=== PATIENT | male | born 1960 | race Caucasian/White ===

== ENCOUNTER → 2017-02-12 | Outpatient (CLI) | payer SELFPAY ==
--- NOTE | 2017-02-13 10:28 | CR ---
EXAM DATE: 02/12/17 PATIENT'S AGE: 56 Patient: DARRYL BARROS Facility: [place], [place] Site . Site : 1960 Study: XRay Spine Lumbar [id number]/2017 5:12:45 PM Ordering Physician: Marti Dent Final Report: Indication: Dorsalgia. Radiculopathy. Chronic pain. Technique: Three upright images of the lumbar spine. Comparison: None. Findings: Advanced L5-S1 disk degeneration and mild L2-3 disk degeneration. Mild to moderate facet degenerative changes in the lower lumbar spine. No fracture or spondylolisthesis. Sacroiliac joints grossly negative. Impression: Degenerative changes, as above. Dictated by Yoandy Hamlin MD @ Feb 13 2017 9:38AM (Electronic Signature) Report Signed by Proxy. GIULIA
== END ==
LOC: MW.CHFP 16:59
PROVIDERS: ATTEND Physician Assistant
DX: M54.9 Dorsalgia, unspecified (principal); M54.16 Radiculopathy, lumbar region; G89.29 Other chronic pain
CPT/HCPCS: 72100; 72100-26

== ENCOUNTER → 2017-02-20 | Outpatient (CLI) | payer BC ==
--- NOTE | 2017-02-24 10:26 | MR ---
EXAM DATE: 02/20/17 PATIENT'S AGE: 56 Patient: DARRYL BARROS Facility: [place], [place] Site . Site : 1960 Study: MRI Spine Lumbar [id number]/26/2017 7:17:13 PM Ordering Physician: Marti Dent Final Report: Indication: Lumbar radiculopathy. Comparison: 02/12/2017. Technique: Sagittal T1, T2, and STIR sequences. Axial T1 and T2 weighted sequences. Findings: Normal vertebral body alignment. No fractures. No vertebral body loss of height. No spondylolisthesis. No ligamentous injury. Vertebral body hemangioma L1. Normal conus terminates at L1-2. T11-12, T12-L1 and L1-2: No spinal canal or neural foraminal narrowing. L2-3: Disc degeneration with posterior disc bulge and a superimposed small right paracentral disc protrusion. Mild narrowing of the spinal canal. No neural foraminal narrowing. L3-4: Disc degeneration with posterior disc bulge. Superimposed left subarticular disk extrusion measuring approximately 9 mm in diameter with 8 mm of cephalad migration. At the level of the interspace, there is moderate severe narrowing of spinal canal. The disc extrusion impinges upon the left L3 nerve root. No neural foraminal narrowing. Mild bilateral facet arthropathy. L4-5: Disc degeneration with mild diffuse disc bulge and superimposed central disc protrusion. Mild to moderate narrowing of spinal canal. Mild narrowing of the bilateral neural foramina. Mild bilateral facet arthropathy. L5-S1: Disk degeneration with loss disc height. Diffuse disc bulge and endplate osteophytic ridging eccentric to the left. Mature postoperative changes of left laminectomy. No narrowing of the spinal canal. There is left subarticular recess narrowing with possible encroachment of the traversing left S1 nerve root. Mild narrowing of the bilateral neural foramina. Degenerative changes of the SI joints. Impression: 1. Normal alignment. No fractures. No spondylolisthesis. 2. Lumbar spondylosis 3. At L2-3, posterior disc bulge and small right paracentral disc protrusion. mild narrowing of spinal canal 4. At L3-4, posterior disc bulge and left subarticular disk extrusion. Moderate to severe narrowing of the spinal canal. Impingement of the left L3 nerve root. 5. At L4-5, mild to moderate narrowing of the spinal canal. Mild narrowing of the bilateral neural foramina. 6. At L5-S1, disk degeneration diffuse disc bulging asymmetric to the left. No narrowing of the spinal canal. Possible encroachment of the traversing left S1 nerve root. Mild narrowing of the bilateral neural foramina Dictated by Js Jacobsen MD @ Feb 20 2017 10:16PM (Electronic Signature) Report Signed by Proxy. GIULIA
== END ==
LOC: MW.MRI 16:49
PROVIDERS: ATTEND Physician Assistant
DX: M54.16 Radiculopathy, lumbar region (principal); M43.06 Spondylolysis, lumbar region; M51.27 Other intervertebral disc displacement, lumbosacral region
CPT/HCPCS: 72148; 72148-26

== ENCOUNTER 2019-03-12 08:22 | Emergency (ER) | payer SELFPAY ==
--- NOTE | 2019-03-12 09:19 | EDM.PDOC ---
ED HPI GENERAL MEDICAL PROBLEM - General Chief Complaint: Gastrointestinal Problem Stated Complaint: CONSTIPATION Time Seen by Provider: 03/12/19 08:31 Source of Information: Reports: Patient History Limitations: Reports: No Limitations - History of Present Illness INITIAL COMMENTS - FREE TEXT/NARRATIVE: History of present illness: Patient donated blood last week and since then has been constipated. He states he's been drinking fluids, no fevers, vomiting or diarrhea. He denies any pain or swelling of his abdomen. Patient has had an appendectomy in the past. Review of systems: As per history of present illness and below otherwise all systems reviewed and negative. Past medical history: As per history of present illness and as reviewed below otherwise noncontributory. Surgical history: As per history of present illness and as reviewed below otherwise noncontributory. Social history: No reported history of drug or alcohol abuse. Family history: As per history of present illness and as reviewed below otherwise noncontributory. Physical exam: General: Well developed, well nourished in NAD HEENT: Atraumatic, normocephalic, pupils reactive, negative for conjunctival pallor or scleral icterus, mucous membranes moist, throat clear, neck supple, nontender, trachea midline. Lungs: Clear to auscultation, breath sounds equal bilaterally, chest nontender. Heart: S1S2, regular, negative for clicks, rubs, or JVD. Abdomen: NABS, Soft, nondistended, nontender. Negative for masses or hepatosplenomegaly. Negative for costovertebral tenderness. Pelvis: Stable nontender. Genitourinary: Deferred. Rectal: Deferred. Extremities: Atraumatic, negative for cords or calf pain. Neurovascular unremarkable. Neuro: Awake, alert, oriented. Cranial nerves II through XII unremarkable. Cerebellum unremarkable. Motor and sensory unremarkable throughout. Exam nonfocal. Skin:warm and dry Diagnostics: Vital signs are stable, Acute abdominal series-obstruction or free air Therapeutics: None ED Course: Stable Impression: Constipation Prescriptions: None Plan: Take magnesium citrate and drink more fluids than normal, follow-up with primary care. Definitive disposition and diagnosis as appropriate pending reevaluation and review of above. Rectal Pain Score (Numeric/FACES): 9 - Related Data Allergies Allergy/AdvReac Type Severity Reaction Status Date / Time Sulfa (Sulfonamide Allergy Rash Verified 03/12/19 08:54 Antibiotics) Home Meds: Home Meds . [No Known Home Meds] 03/12/19 [History] Past Medical History Cardiovascular History: Reports: None Respiratory History: Reports: None Genitourinary History: Reports: None Psychiatric History: Reports: None Endocrine/Metabolic History: Reports: None Hematologic History: Reports: None Immunologic History: Reports: None Dermatologic History: Reports: Benign Melanoma - Infectious Disease History Infectious Disease History: Reports: None - Past Surgical History Head Surgeries/Procedures: Reports: None HEENT Surgical History: Reports: Tonsillectomy GI Surgical History: Reports: Appendectomy Other Neurological Surgeries/Procedures: 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 ED EXAM, GI/ABD - Physical Exam Exam: See Below (History of present illness) Course - Vital Signs Last Recorded V/S: Last Vital Signs Temp 97.5 F 03/12/19 08:53 Pulse 80 03/12/19 08:53 Resp 20 03/12/19 08:53 BP 131/70 03/12/19 08:53 Pulse Ox 96 03/12/19 08:53 - Orders/Labs/Meds Orders: Active Orders 24 hr Category Date Time Status Abdomen Series w Chest 1V [CR] Stat Exams 03/12/19 08:31 Taken Departure - Departure Time of Disposition: 09:43 Disposition: Home, Self-Care 01 Condition: Good Clinical Impression: Constipation Qualifiers: Constipation type: unspecified constipation type Qualified Code(s): K59.00 - Constipation, unspecified - Discharge Information *PRESCRIPTION DRUG MONITORING PROGRAM REVIEWED*: No *COPY OF PRESCRIPTION DRUG MONITORING REPORT IN PATIENT [place]: No Referrals: PCP,Unknown [Primary Care Provider] - Forms: ED Department Discharge Additional Instructions: The following information is given to patients seen in the emergency department who are being discharged to home. This information is to outline your options for follow-up care. We provide all patients seen in our emergency department with a follow-up referral. The need for follow-up, as well as the timing and circumstances, are variable depending upon the specifics of your emergency department visit. If you don't have a primary care physician on staff, we will provide you with a referral. We always advise you to contact your personal physician following an emergency department visit to inform them of the circumstance of the visit and for follow-up with them and/or the need for any referrals to a consulting specialist. The emergency department will also refer you to a specialist when appropriate. This referral assures that you have the opportunity for follow-up care with a specialist. All of these measure are taken in an effort to provide you with optimal care, which includes your follow-up. Under all circumstances we always encourage you to contact your private physician who remains a resource for coordinating your care. When calling for follow-up care, please make the office aware that this follow-up is from your recent emergency room visit. If for any reason you are refused follow-up, please contact the [facility] Emergency Department at and asked to speak to the emergency department charge nurse. Half a bottle of magnesium citrate that you can buy [id number] weight 30 minutes and drink the other half of the bottle. Increase fluid intake and follow -up with primary care. [facility] [address] [place] [id number] - My Orders Last 24 Hours: My Active Orders 03/12/19 08:31 Abdomen Series w Chest 1V [CR] Stat - Assessment/Plan Last 24 Hours: My Active Orders 03/12/19 08:31 Abdomen Series w Chest 1V [CR] Stat
--- NOTE | 2019-03-12 15:45 | CR ---
HISTORY: Abdominal pain. TECHNIQUE: Acute abdominal series. COMPARISON: No prior. FINDINGS: Cardiac size is upper limits of normal accounting for AP portable technique. There is no lung consolidation or pulmonary edema. No pneumothorax or pleural effusion. Nonspecific bowel gas pattern but not suggestive of a bowel obstruction. No free air. There are degenerative changes of the spine. IMPRESSION: 1. No obstruction or free air. 2. No acute cardiopulmonary disease. Dictated by Harsha Gonsalez MD @ 03/12/2019 9:42:25 AM Dictated by: Harsha Gonsalez MD @ 03/12/2019 09:42:29 (Electronically Signed)
== END 2019-03-12 09:55 | disposition home or self-care (01) ==
LOC: MW.ED 08:22
DX: K59.00 Constipation, unspecified (principal); Z98.890 Other specified postprocedural states; Z90.49 Acquired absence of other specified parts of digestive tract; Z88.2 Allergy status to sulfonamides
CPT/HCPCS: 74022; 74022-26; 99283-25

== ENCOUNTER 2020-11-22 13:22 | Emergency (ER) | payer OTHER ==
[2020-11-22] MEDS ORDERED: Ibuprofen 800 MG Tab PO ONE (13:48)
--- NOTE | 2020-11-22 13:51 | EDM.PDOC ---
ED HPI GENERAL MEDICAL PROBLEM - General Chief Complaint: Lower Extremity Injury/Pain Stated Complaint: RT FOOT Time Seen by Provider: 11/22/20 13:45 Source of Information: Reports: Patient History Limitations: Reports: No Limitations - History of Present Illness INITIAL COMMENTS - FREE TEXT/NARRATIVE: Patient is a 60-year-old male who presents today after dropping a trailer hitch on his right foot. Patient does have lives at work and he is wearing his shoes. Patient is able to still ambulate and put pressure on the foot but the pain still bothers him. Patient denies any other injuries. Patient denies any nausea vomiting fever chills or other complaints. 7 Pain Score (Numeric/FACES): 7 - Related Data Allergies Allergy/AdvReac Type Severity Reaction Status Date / Time Sulfa (Sulfonamide Allergy Rash Verified 03/12/19 08:54 Antibiotics) Home Meds: Home Meds . [No Known Home Meds] 03/12/19 [History] Past Medical History Cardiovascular History: Reports: None Respiratory History: Reports: None Genitourinary History: Reports: None Psychiatric History: Reports: None Endocrine/Metabolic History: Reports: None Hematologic History: Reports: None Immunologic History: Reports: None Dermatologic History: Reports: Benign Melanoma - Infectious Disease History Infectious Disease History: Reports: None - Past Surgical History Head Surgeries/Procedures: Reports: None HEENT Surgical History: Reports: Tonsillectomy GI Surgical History: Reports: Appendectomy Other Neurological Surgeries/Procedures: 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 at that time had shunt placed at that time also Other Musculoskeletal Surgeries/Procedures:: broken ribs Other Oncologic Surgeries/Procedures: scalp cancer 2010 Social & Family History - Caffeine Use Caffeine Use: Reports: None Review of Systems - Review of Systems Review Of Systems: See Below Constitutional: Reports: No Symptoms Eyes: Reports: No Symptoms Ears: Reports: No Symptoms Nose: Reports: No Symptoms Mouth/Throat: Reports: No Symptoms Respiratory: Reports: No Symptoms Cardiovascular: Reports: No Symptoms GI/Abdominal: Reports: No Symptoms Genitourinary: Reports: No Symptoms Musculoskeletal: Reports: Foot Pain Skin: Reports: No Symptoms Neurological: Reports: No Symptoms Psychiatric: Reports: No Symptoms ED EXAM, GENERAL - Physical Exam Exam: See Below Exam Limited By: No Limitations General Appearance: Alert, WD/WN Respiratory/Chest: No Respiratory Distress Cardiovascular: Normal Peripheral Pulses Peripheral Pulses: 2+: Dorsalis Pedis (L), Dorsalis Pedis (R) Extremities: Normal Inspection, Normal Range of Motion, Leg Pain (foot pain back of foot). No: Joint Swelling Neurological: Alert, Oriented, Normal Cognition, Normal Gait Course - Vital Signs Last Recorded V/S: Last Vital Signs Temp 96.9 F 11/22/20 13:49 Pulse 71 11/22/20 13:49 Resp 18 11/22/20 13:49 BP 140/81 11/22/20 13:49 Pulse Ox 98 11/22/20 13:49 - Orders/Labs/Meds Meds: Medications Discontinued Medications Generic Name Dose Route Start Last Admin Trade Name Freq PRN Reason Stop Dose Admin Ibuprofen 800 mg 11/22/20 13:48 11/22/20 14:00 Motrin PO 11/22/20 13:49 800 mg ONETIME ONE Administration - Re-Assessments/Exams Free Text/Narrative Re-Assessment/Exam: 11/22/20 15:05 Has a fracture of his proximal fifth phalanges. Patient made aware told to wear hard sole shoe patient will follow-up orthopedics. Departure - Departure Time of Disposition: 15:06 Disposition: Home, Self-Care 01 Condition: Good Clinical Impression: Fracture of proximal phalanx of toe - Discharge Information *PRESCRIPTION DRUG MONITORING PROGRAM REVIEWED*: Not Applicable *COPY OF PRESCRIPTION DRUG MONITORING REPORT IN PATIENT [place]: Not Applicable Instructions: Toe Fracture, [id number] Referrals: PCP,None [Primary Care Provider] - Forms: ED Department Discharge Additional Instructions: The following information is given to patients seen in the emergency department who are being discharged to home. This information is to outline your options for follow-up care. We provide all patients seen in our emergency department with a follow-up referral. The need for follow-up, as well as the timing and circumstances, are variable depending upon the specifics of your emergency department visit. If you don't have a primary care physician on staff, we will provide you with a referral. We always advise you to contact your personal physician following an emergency department visit to inform them of the circumstance of the visit and for follow-up with them and/or the need for any referrals to a consulting specialist. The emergency department will also refer you to a specialist when appropriate. This referral assures that you have the opportunity for follow-up care with a specialist. All of these measure are taken in an effort to provide you with optimal care, which includes your follow-up. Under all circumstances we always encourage you to contact your private physician who remains a resource for coordinating your care. When calling for follow-up care, please make the office aware that this follow-up is from your recent emergency room visit. If for any reason you are refused follow-up, please contact the [facility] Emergency Department at and asked to speak to the emergency department charge nurse. Please follow up with your primary care physician. If you do not have a primary care physician, see below: [facility] [address] [place] [id number] [facility] [address] [place] [address] [facility] [address] [place] [address], [address] [place] [address] Please call the number above to follow-up with orthopedics. If you have any increased pain in foot swelling or difficulty ambulating please return to the ED. Sepsis Event Note (ED) - Focused Exam Vital Signs: Vital Signs Temp Pulse Resp BP Pulse Ox 11/22/20 13:49 96.9 F 71 18 140/81 98 - Assessment/Plan Plan: Pt is a 60-year-old male presents today for right foot pain after dropping a trailer hitch on it. Patient some bruising to the foot will obtain x-ray pain control and reassess.
--- NOTE | 2020-11-22 14:52 | CR ---
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 There is a minimally displaced fracture of the cortex of the distal of the right 5th proximal phalanx. Joint spaces: Unremarkable. Soft tissues: Unremarkable. Impression: Minimally displaced fracture of the cortex of the distal right 5th proximal phalanx. Accessory navicular ossicle. Dictated by Caitlin Lewis MD @ Nov 22 2020 2:52PM Signed by Dr. Caitlin Lewis @ Nov 22 2020 2:52PM
== END 2020-11-22 15:20 | disposition home or self-care (01) ==
LOC: MW.ED 13:22
DX: S92.511A Displaced fracture of proximal phalanx of right lesser toe(s), initial encounter for closed fracture (principal); Z88.2 Allergy status to sulfonamides; W20.8XXA Other cause of strike by thrown, projected or falling object, initial encounter
CPT/HCPCS: 73630; 99283; A9270; 99282

== ENCOUNTER 2021-06-29 09:02 | Emergency (ER) | payer OTHER ==
[2021-06-29] MEDS ORDERED: Diphtheria,Pertussis(Acell),Tetanus Vaccine 0.5 ML Syringe IM ONE (09:04)
--- NOTE | 2021-06-29 09:05 | EDM.PDOC ---
ED HPI GENERAL MEDICAL PROBLEM - General Chief Complaint: Neurological Problem Stated Complaint: SEIZURES Time Seen by Provider: 06/29/21 09:03 Source of Information: Reports: Patient History Limitations: Reports: No Limitations - History of Present Illness INITIAL COMMENTS - FREE TEXT/NARRATIVE: 61-year-old male past medical history brain tumor status post chemotherapy and radiation treatment, known seizure disorder presents for seizure. Patient was at work when he had seizure-like activity witnessed by coworkers. He fell backwards and hit the back of his head. He did have LOC for about a minute or 2. On EMS arrival he was awake and alert. He has no complaints currently. He is uncertain of his tetanus vaccination status. He said his last seizure was a few months ago. Head Pain Score (Numeric/FACES): 3 - Related Data Allergies Allergy/AdvReac Type Severity Reaction Status Date / Time Sulfa (Sulfonamide Allergy Rash Verified 06/29/21 09:04 Antibiotics) Home Meds: Home Meds . [No Known Home Meds] 03/12/19 [History] Past Medical History Cardiovascular History: Reports: None Respiratory History: Reports: None Genitourinary History: Reports: None Psychiatric History: Reports: None Endocrine/Metabolic History: Reports: None Hematologic History: Reports: None Immunologic History: Reports: None Dermatologic History: Reports: Benign Melanoma - Infectious Disease History Infectious Disease History: Reports: None - Past Surgical History Head Surgeries/Procedures: Reports: None HEENT Surgical History: Reports: Tonsillectomy GI Surgical History: Reports: Appendectomy Other Neurological Surgeries/Procedures: 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 Other Oncologic Surgeries/Procedures: scalp cancer 2009 Social & Family History - Family History Family Medical History: No Pertinent Family History - Caffeine Use Caffeine Use: Reports: Coffee, Soda ED ROS GENERAL - Review of Systems Review Of Systems: Comprehensive ROS is negative, except as noted in HPI. ED EXAM, GENERAL - Physical Exam Exam: See Below Exam Limited By: No Limitations General Appearance: Alert, WD/WN, No Apparent Distress Eye Exam: Bilateral Eye: EOMI, PERRL Ears: Hearing Grossly Normal Nose: Normal Inspection Throat/Mouth: Normal Voice, No Airway Compromise Head: Normocephalic, Other (3-cm linear laceration to occipital scalp) Neck: Normal Inspection, Supple, Non-Tender, Full Range of Motion Respiratory/Chest: No Respiratory Distress, Lungs Clear, Normal Breath Sounds, No Accessory Muscle Use Cardiovascular: Normal Peripheral Pulses, Regular Rate, Rhythm GI/Abdominal: Soft, Non-Tender Back Exam: Normal Inspection Extremities: Normal Inspection Neurological: Alert, Oriented, CN II-XII Intact, Normal Cognition, Normal Gait, No Motor/Sensory Deficits Psychiatric: Normal Affect, Normal Mood Skin Exam: Warm, Dry, Intact, Normal Color ED GENERAL MEDICAL PROCEDURES - Laceration/Wound Repair Middle Posterior Lac/wound length in cm: 3 Appearance: Superficial Distal NVT: Neuro & Vascular Intact Anesthetic Type: Local Local Anesthesia - Lidocaine (Xylocaine): 1% with EPI Local Anesthetic Volume: 5cc Skin Prep: Chlorhexidine (Hibiciens) Saline irrigation (cc's): 100 Closed with: Martha # of Sutures: 3 Sterile Dressing Applied: Nurse Tetanus Status Addressed: Yes Complications: No #1 Interpretation EKG Date: 06/29/21 Time: 09:23 Rhythm: NSR Rate (Beats/Min): 64 [place]: Normal P-Wave: Present QRS: Normal ST-T: Normal QT: Normal WA/PQ Interval: 148 Comparison: NA - No Prior EKG EKG Interpretation Comments: normal EKG, no ischemic changes Course - Vital Signs Last Recorded V/S: Last Vital Signs Temp 97.2 F 06/29/21 09:05 Pulse 73 06/29/21 10:01 Resp 18 06/29/21 09:05 BP 125/73 06/29/21 10:01 Pulse Ox 94 L 06/29/21 10:01 - Orders/Labs/Meds Meds: Medications Discontinued Medications Generic Name Dose Route Start Last Admin Trade Name Freq PRN Reason Stop Dose Admin Diphtheria/Tetanus/Acell Pertussis 0.5 ml 06/29/21 09:04 06/29/21 10:03 Diphtheria,Pertussis(Acell),Tetanus Vaccine 0.5 Ml Syringe IM 06/29/21 09:05 0.5 ml .ONCE ONE Administration Lidocaine/Epinephrine 10 ml 06/29/21 10:12 06/29/21 10:32 Lidocaine 1% With Epinephrine 1:100,000 10 Ml Mdv INJECT 06/29/21 10:13 Not Given ONETIME ONE Lidocaine/Epinephrine 20 ml 06/29/21 10:20 06/29/21 10:20 Lidocaine 1% With Epinephrine 1:100,000 20 Ml Mdv INJECT 06/29/21 10:21 20 ml ONETIME ONE Administration Lidocaine/Epinephrine Confirm 06/29/21 10:18 06/29/21 10:32 Lidocaine 1% With Epinephrine 1:100,000 20 Ml Mdv Administered 06/29/21 10:19 Not Given Dose 20 ml .[address] .[facility] ONE - Re-Assessments/Exams Free Text/Narrative Re-Assessment/Exam: 06/29/21 09:17 Considering history will get head CT. Will give tetanus vaccination as patient is uncertain of his last tetanus dose. 06/29/21 10:48 CT without acute pathology. Will discharge with neurology follow-up. Return precautions discussed at length. Patient to return in 7 to 10 days for suture removal. Departure - Departure Time of Disposition: 10:48 Disposition: Home, Self-Care 01 Condition: Good Clinical Impression: Seizure Laceration of scalp Qualifiers: Encounter type: initial encounter Qualified Code(s): S01.01XA - Laceration without foreign body of scalp, initial encounter - Discharge Information Instructions: Seizure, Adult, [id number], Laceration Care, Adult, [id number] Forms: ED Department Discharge Additional Instructions: Please return to the emergency department and about 10 days to have the martha removed. You can also follow-up with your primary care physician or urgent care center to get this done. You should see your neurologist since you had a breakthrough seizure and consider restarting your antiepileptic medications. If you have a repeat episode of seizure then please come back to the emergency department for reassessment. The following information is given to patients seen in the emergency department who are being discharged to home. This information is to outline your options for follow-up care. We provide all patients seen in our emergency department with a follow-up referral. The need for follow-up, as well as the timing and circumstances, are variable depending upon the specifics of your emergency department visit. If you don't have a primary care physician on staff, we will provide you with a referral. We always advise you to contact your personal physician following an emergency department visit to inform them of the circumstance of the visit and for follow-up with them and/or the need for any referrals to a consulting specialist. The emergency department will also refer you to a specialist when appropriate. This referral assures that you have the opportunity for follow-up care with a specialist. All of these measure are taken in an effort to provide you with optimal care, which includes your follow-up. Under all circumstances we always encourage you to contact your private physician who remains a resource for coordinating your care. When calling for follow-up care, please make the office aware that this follow-up is from your recent emergency room visit. If for any reason you are refused follow-up, please contact the [facility] Emergency Department at and asked to speak to the emergency department charge nurse. Please follow up with your primary care physician. If you do not have a primary care physician, see below: [facility] [address] [place] [id number] [facility] [address] [place] [id number] [facility] [address] [place] [id number] Sepsis Event Note (ED) - Focused Exam Vital Signs: Vital Signs Temp Pulse Resp BP Pulse Ox 06/29/21 10:01 73 125/73 94 L 06/29/21 09:05 97.2 F 65 18 128/67 95
[2021-06-29] MEDS ORDERED: Lidocaine 1% with EPINEPHrine 1:100,000 10 ML MDV INJECT ONE (10:12)
[2021-06-29] MEDS ORDERED: Lidocaine 1% with EPINEPHrine 1:100,000 20 ML MDV ONE (10:18)
[2021-06-29] MEDS ORDERED: Lidocaine 1% with EPINEPHrine 1:100,000 20 ML MDV INJECT ONE (10:20)
--- NOTE | 2021-06-29 10:43 | CT ---
INDICATION: Seizures. Fall. TECHNIQUE: CT of the head without contrast. Coronal and sagittal reformats are included. COMPARISON: None. FINDINGS: Postsurgical changes of right occipital sujit hole craniotomy, with shunt catheter entering the occipital horn of the lateral ventricle and tip terminating within the right frontal region. The ventricles are well decompressed. Hazy foci of hyperattenuation within the bilateral globus pallidi and left thalamic region, most compatible with mineralization. No acute parenchymal hemorrhage. No evidence of acute ischemia. Low-attenuation encephalomalacia left basal ganglia with central calcification, likely from chronic hemorrhage or infarct. Encephalomalacia the right external capsule/superior basal ganglia/centrum semiovale also likely from chronic hemorrhage or infarct. No acute osseous abnormalities. Mastoid air cells and paranasal sinuses are clear. Normal soft tissues. IMPRESSION: 1. No acute intracranial pathology. 2. Right occipital approach ventriculostomy catheter with tip terminating in the right frontal region. Ventricles remain well decompressed. 3. Areas of higher attenuation bilateral basal ganglia and left thalamus most compatible with mineralization. 4. Additional chronic intracranial findings as above. Please note that all CT scans at this facility use dose modulation, iterative reconstruction, and/or weight-based dosing when appropriate to reduce radiation dose to as low as reasonably achievable. Dictated by Andrew Clifton MD @ 06/29/2021 10:42:31 AM (Electronically Signed)
== END 2021-06-29 11:05 | disposition home or self-care (01) ==
LOC: MW.ED 09:02
DX: S01.01XA Laceration without foreign body of scalp, initial encounter (principal); G40.909 Epilepsy, unspecified, not intractable, without status epilepticus; Z88.2 Allergy status to sulfonamides; Z23 Encounter for immunization; W18.09XA Striking against other object with subsequent fall, initial encounter
CPT/HCPCS: 12002; 70450; 70450-26; 90471; 90715; 93005; 93010; 99284; 99285-25

== ENCOUNTER 2021-07-09 15:03 | Inpatient (IN) | payer OTHER ==
--- NOTE | 2021-07-09 16:22 | PCM.EKG ---
#1 Interpretation EKG Date: 07/09/21 Time: 16:11 Rhythm: NSR Rate (Beats/Min): 109 [place]: Normal P-Wave: Present QRS: Normal ST-T: Normal QT: Normal Comparison: No Change (06/29/21) EKG Interpretation Comments: Sinus tachycardia
[2021-07-09 17:13] LABS: BLOOD UREA NITROGEN,BUN 19 mg/dL (7.0-18.0); CARBON DIOXIDE,CO2 24.8 mmol/L (21.0-32.0); CHLORIDE,CL 103 mmol/L (98-107); GLUCOSE RANDOM 150 mg/dL (74-106); POTASSIUM,K 3.6 mmol/L (3.5-5.1); SODIUM,NA 142 mmol/L (136-148)
[2021-07-09] MEDS ORDERED: Iopamidol 755 MG/ML 500 ML Multipack Bottle IVPUSH STA (18:05)
--- NOTE | 2021-07-09 18:47 | CR ---
Indication: Hypoxia Technique: Portable chest Comparison: No comparison Findings: Lung volumes. Normal cardiac mediastinal silhouette. Diffuse patchy infiltrates bilaterally. No effusion or pneumothorax. Findings may reflect infectious inflammatory process to include COVID Dictated by Eleonora Johnson MD @ 07/09/2021 6:45:27 PM (Electronically Signed)
--- NOTE | 2021-07-09 19:05 | CT ---
INDICATION: Hypoxia, evaluate for PE. COMPARISON: Chest radiograph 07/09/2021. TECHNIQUE: CT of the chest with 100 cc of Isovue 370 IV contrast. Coronal and sagittal reconstructions. 3D post processing was performed. FINDINGS: Normal heart size. Normal caliber thoracic aorta and central pulmonary arteries. Negative for acute pulmonary embolism. No pericardial effusion. Mildly prominent mediastinal, hilar, and bilateral axillary lymph nodes are likely reactive. The imaged thyroid gland is normal in appearance. Low lung volumes. Multifocal patchy ground-glass opacities throughout the lungs bilaterally compatible with pneumonia. These have a peripheral and basilar predominance. No pleural effusion or pneumothorax. No central endobronchial lesion. Probable focal fatty infiltration of the liver adjacent to the gallbladder fossa. Partially visualized left renal cyst. Degenerative changes of the spine. Chronic appearing minimal depression of the T10 and T11 superior endplates. Old left posterior rib fracture. IMPRESSION: 1. Negative for acute pulmonary embolism. 2. Multifocal patchy ground-glass opacities throughout the lungs bilaterally compatible pneumonia. Rule out COVID. Please note that all CT scans at this facility use dose modulation, iterative reconstruction, and/or weight-based dosing when appropriate to reduce radiation dose to as low as reasonably achievable. Dictated by Ramona Luna MD @ 07/09/2021 7:04:36 PM (Electronically Signed)
[2021-07-09] MEDS ORDERED: Lactated Ringers 1,000 ML IV SCH (19:15)
--- NOTE | 2021-07-09 19:19 | EDM.PDOC ---
<Rolly Gallego - Last Filed: 07/09/21 19:26> ED HPI GENERAL MEDICAL PROBLEM - General Chief Complaint: Respiratory Problem Stated Complaint: remove martha Time Seen by Provider: 07/09/21 16:12 - History of Present Illness INITIAL COMMENTS - FREE TEXT/NARRATIVE: CHIEF COMPLAINT(S): Here to remove my staple HISTORY OF PRESENT ILLNESS: This is a 61-year-old man with a recent fall with scalp laceration status post staple who comes to the emergency department with a chief complaint of here to remove my martha. The patient states that he presents to the emergency department to remove his martha. However on arrival the patient's oxygen was low and decided to check in. He states that he has been experiencing chest pressure which is mild bilaterally for the last week. He states that this pressure is not exertional and denies any shortness of breath but states that he does have to take shallow breaths because of the pressure. He denies any recent travel, recent surgery, prior history of DVT or PE. He states that he is not vaccinated. 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 He denies any lower extreme edema, history of CAD, CHF. He denies any international travel. He denies any fever, chills, or cough. He denies any other symptoms REVIEW OF SYSTEMS: Constitutional: Denies fever, chills. Eyes: Denies eye pain Ears, Nose, Mouth, & Throat: Denies earache Cardiovascular: Positive for bilateral chest pressure. Respiratory: Denies shortness of breath, cough Gastrointestinal: Denies Nausea, vomiting, diarrhea, hematochezia. Genitourinary: Denies hematuria Skin:Denies a rash MSK: Denies joint pain Neurological: Denies blurred vision Psychiatric: Denies depression PAST MEDICAL HISTORY: As per history of present illness and as reviewed below otherwise noncontributory. SURGICAL HISTORY: As per history of present illness and as reviewed below otherwise noncontributory. SOCIAL HISTORY: As per history of present illness and as reviewed below otherwise noncontributory. FAMILY HISTORY: As per history of present illness and as reviewed below otherwise noncontributory. EXAMINATION OF ORGAN SYSTEMS/BODY AREAS: Constitutional: Blood pressure is 126/80, heart rate 110, respiratory rate 17 with an oxygen saturation of 88% on room air. 94% on 2 L nasal cannula. Temperature 36.4 General: Well-appearing man who is in no acute distress Psychiatric: Appropriate mood and affect. Eyes: No scleral icterus or conjunctival erythema ENMT: Moist mucous membranes. No pharyngeal erythema Cardiovascular: Regular, rate, and rhythm. No gallops, murmurs, or rubs. Bilateral upper extremity pulses symmetric and intact. No peripheral edema. No JVD. Respiratory: Lungs clear to auscultation bilaterally. No wheezes, rales, or rhonchi. Gastrointestinal: Soft, non-tender, non-distended. Normoactive bowel sounds Genitourinary: No suprapubic tenderness Musculoskeletal: Normal range of motion. Skin: No lesions or abrasions. Neurological: Alert, GCS 15 MEDICAL DECISION MAKING AND COURSE IN THE ED WITH INTERPRETATION/REVIEW OF DIAGNOSTIC STUDIES: This is a 61-year-old man with a past medical history of recent fall status post staple repair of scalp laceration who comes to the emergency department with need for removal of his martha who was found to be hypoxic and tachycardic. The patient reported 1 week of pressure therefore we did obtain an EKG which was unremarkable. Patient was placed on cardiac monitoring and pulse oximetry. court recording monitor did reveal sinus tachycardia and pulse oximetry with good waveform was 94% on 2 L nasal cannula. Will obtain a cardiac work-up including CBC, BMP, magnesium, troponin, D-dimer. Will obtain a Covid swab. Will obtain a chest x-ray. Laboratory: CBC reveals a leukocytosis of 14.34 with normal indices with some segmented neutrophils. Hemoglobin is elevated at 18.6 hematocrit of 52.4. D- dimer is elevated at 0.86. BMP reveals elevated BUN at 19, hyperglycemia at 150, hypermagnesemia at 2.6 otherwise unremarkable. Troponin is negative. Covid is negative. Given the elevated D-dimer we will obtain a CT angiogram of the chest to evaluate for pulmonary embolism. The radiological images were viewed by myself along with reading the report from the radiologist. Chest x-ray reveals bilateral patchy infiltrates findings may reflect infectious inflammatory process to include COVID-19. After imaging and labs given the elevated white count, tachycardia and hypoxia I did provide the patient 1 L of lactated Ringer's bolus. Patient's blood pressure is completely normal at this time therefore we will reevaluate need for additional IV fluid administration. We will obtain lactic acid, blood cultures and start the patient on ceftriaxone and azithromycin. Antibiotics are started prophylactically however I do believe the patient's x-ray findings are likely secondary to viral or atypical pneumonia. At the time of signout the patient's CT angiogram of the chest and final disposition were pending. The patient was [facility] team physician. DISPOSITION: Patient was signed out to [facility] night team physician pending CT angiogram and final disposition CONDITION: Fair PROCEDURES: Cardiac monitoring and pulse oximetry interpretation FINAL IMPRESSION(S)/DIAGNOSES: Acute hypoxic respiratory failure secondary to multifocal pneumonia Rolly Gallego M.D. - Related Data Allergies Allergy/AdvReac Type Severity Reaction Status Date / Time Sulfa (Sulfonamide Allergy Rash Verified 07/09/21 15:56 Antibiotics) Home Meds: Home Meds . [No Known Home Meds] 03/12/19 [History] Past Medical History Cardiovascular History: Reports: None Respiratory History: Reports: None Genitourinary History: Reports: None Psychiatric History: Reports: None Endocrine/Metabolic History: Reports: None Hematologic History: Reports: None Immunologic History: Reports: None Dermatologic History: Reports: Benign Melanoma - Infectious Disease History Infectious Disease History: Reports: None - Past Surgical History Head Surgeries/Procedures: Reports: None HEENT Surgical History: Reports: Tonsillectomy GI Surgical History: Reports: Appendectomy Other Neurological Surgeries/Procedures: 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 Other Oncologic Surgeries/Procedures: scalp cancer 2009 Social & Family History - Family History Family Medical History: No Pertinent Family History - Tobacco Use Tobacco Use Status *Q: Never Tobacco User - Caffeine Use Caffeine Use: Reports: Coffee, Soda - Recreational Drug Use Recreational Drug Use: No ED ROS GENERAL - Review of Systems Review Of Systems: See Below ED EXAM, GENERAL - Physical Exam Exam: See Below Departure - Departure Disposition: Admitted As Inpatient 67 Clinical Impression: Pneumonia - Discharge Information Referrals: PCP,None [Primary Care Provider] - Forms: ED Department Discharge Sepsis Event Note (ED) - Evaluation Sepsis Screening Result: Possible Sepsis Risk <Ezra Kaufman - Last Filed: 07/09/21 19:32> Course - Vital Signs Last Recorded V/S: Last Vital Signs Temp 97.5 F 07/09/21 15:56 Pulse 99 07/09/21 18:55 Resp 17 07/09/21 15:56 BP 126/79 07/09/21 18:55 Pulse Ox 94 L 07/09/21 18:55 - Orders/Labs/Meds Orders: Active Orders 24 hr Category Date Time Status Patient Status [ADT] Routine ADT 07/09/21 19:30 Ordered BILIRUBIN TOTAL [CHEM] Stat Lab 07/09/21 16:26 Received CULTURE BLOOD [BC] Stat Lab 07/09/21 19:04 Ordered CULTURE BLOOD [BC] Stat Lab 07/09/21 19:04 Ordered INFLUENZA A+B AG SCREEN [RM] Stat Lab 07/09/21 19:23 Ordered LACTIC ACID SEPSIS W/ REFLEX [LACTATE SEPSIS W/ REFLEX] Lab 07/09/21 18:52 Ordered [CHEM] Stat Azithromycin [Zithromax] 500 mg Med 07/09/21 19:30 Active Sodium Chloride 0.9% [Normal Saline (AdvBag)] 250 ml IV ONETIME Lactated Ringers [Ringers, Lactated] 1,000 ml Med 07/09/21 19:15 Active IV ASDIRECTED cefTRIAXone [Rocephin in Dextrose,Iso-Osm 1 GM/50 ML] 1 Med 07/09/21 19:24 Active gm Premix Bag 1 bag IV ONETIME cefTRIAXone [Rocephin in Dextrose,Iso-Osm 2 GM/50 ML] 2 Med 07/09/21 19:24 Active gm Premix Bag 1 bag IV ONETIME Blood Culture x2 Reflex Set [OM.PC] Stat Oth 07/09/21 19:04 Ordered Isolation [COMM] Routine Oth 07/09/21 19:24 Active Medication Orders Lactated Ringer's (Ringers, Lactated) 1,000 mls @ 999 mls/hr IV ASDIRECTED ISAMAR Last Admin: 07/09/21 19:14 Dose: 999 mls/hr Documented by: LESLIE Ceftriaxone Sodium/Dextrose 2 (gm/ Premix) 50 mls @ 100 mls/hr IV ONETIME ONE Stop: 07/09/21 19:53 Azithromycin 500 mg/ Sodium (Chloride) 250 mls @ 250 mls/hr IV ONETIME ISAMAR Ceftriaxone Sodium/Dextrose 1 (gm/ Premix) 50 mls @ 100 mls/hr IV ONETIME ONE Stop: 07/09/21 19:53 Labs: Laboratory Tests 07/09/21 07/09/21 07/09/21 Range/Units 15:49 16:26 16:26 WBC 14.34 H (4.0-11.0) K/uL RBC 5.77 (4.50-5.90) M/uL Hgb 18.6 H (13.0-17.0) g/dL Hct 52.4 H (38.0-50.0) % MCV 90.8 (80.0-98.0) fL MCH 32.2 H (27.0-32.0) pg MCHC 35.5 (31.0-37.0) g/dL RDW Std Deviation 41.7 (28.0-62.0) fl RDW Coeff of Lupillo 13 (11.0-15.0) % Plt Count 370 (150-400) K/uL MPV 11.20 (7.40-12.00) fL Add Manual Diff YES Neutrophils % (Manual) 76 (48.0-80.0) % Band Neutrophils % 2 % Lymphocytes % (Manual) 16 (16.0-40.0) % Monocytes % (Manual) 3 (0.0-15.0) % Eosinophils % (Manual) 3 (0.0-7.0) % Nucleated RBC % 0.0 /100WBC Absolute Seg Neuts 10.9 H (1.4-5.7) Band Neutrophils # 0.3 Lymphocytes # (Manual) 2.3 (0.6-2.4) Monocytes # (Manual) 0.4 (0.0-0.8) Eosinophils # (Manual) 0.4 (0.0-0.7) Nucleated RBCs # 0 K/uL INR D-Dimer, Quantitative (0.0-0.50) mg/L FEU Sodium 142 (136-148) mmol/L Potassium 3.6 (3.5-5.1) mmol/L Chloride 103 (98-107) mmol/L Carbon Dioxide 24.8 (21.0-32.0) mmol/L BUN 19 H (7.0-18.0) mg/dL Creatinine 1.1 (0.8-1.3) mg/dL Est Cr Clr Drug Dosing 80.71 mL/min Estimated GFR (MDRD) > 60.0 ml/min Glucose 150 H (74-106) mg/dL Calcium 8.6 (8.5-10.1) mg/dL Magnesium 2.6 H (1.8-2.4) mg/dL Troponin I < 0.050 (0.000-0.056) ng/mL SARS-CoV-2 RNA (AN) NEGATIVE (NEGATIVE) 07/09/21 07/09/21 Range/Units 16:26 16:26 WBC (4.0-11.0) K/uL RBC (4.50-5.90) M/uL Hgb (13.0-17.0) g/dL Hct (38.0-50.0) % MCV (80.0-98.0) fL MCH (27.0-32.0) pg MCHC (31.0-37.0) g/dL RDW Std Deviation (28.0-62.0) fl RDW Coeff of Lupillo (11.0-15.0) % Plt Count (150-400) K/uL MPV (7.40-12.00) fL Add Manual Diff Neutrophils % (Manual) (48.0-80.0) % Band Neutrophils % % Lymphocytes % (Manual) (16.0-40.0) % Monocytes % (Manual) (0.0-15.0) % Eosinophils % (Manual) (0.0-7.0) % Nucleated RBC % /100WBC Absolute Seg Neuts (1.4-5.7) Band Neutrophils # Lymphocytes # (Manual) (0.6-2.4) Monocytes # (Manual) (0.0-0.8) Eosinophils # (Manual) (0.0-0.7) Nucleated RBCs # K/uL INR 1.09 D-Dimer, Quantitative 0.86 H (0.0-0.50) mg/L FEU Sodium (136-148) mmol/L Potassium (3.5-5.1) mmol/L Chloride (98-107) mmol/L Carbon Dioxide (21.0-32.0) mmol/L BUN (7.0-18.0) mg/dL Creatinine (0.8-1.3) mg/dL Est Cr Clr Drug Dosing mL/min Estimated GFR (MDRD) ml/min Glucose (74-106) mg/dL Calcium (8.5-10.1) mg/dL Magnesium (1.8-2.4) mg/dL Troponin I (0.000-0.056) ng/mL SARS-CoV-2 RNA (AN) (NEGATIVE) Meds: Medications Generic Name Dose Route Start Last Admin Trade Name Margaux PRN Reason Stop Dose Admin Lactated Ringer's 1,000 mls @ 999 mls/hr 07/09/21 19:15 07/09/21 19:14 Ringers, Lactated IV 999 mls/hr ASDIRECTED ISAMAR Administration Ceftriaxone Sodium/Dextrose 2 50 mls @ 100 mls/hr 07/09/21 19:24 gm/ Premix IV 07/09/21 19:53 ONETIME ONE Azithromycin 500 mg/ Sodium 250 mls @ 250 mls/hr 07/09/21 19:30 Chloride IV ONETIME ISAMAR Ceftriaxone Sodium/Dextrose 1 50 mls @ 100 mls/hr 07/09/21 19:24 gm/ Premix IV 07/09/21 19:53 ONETIME ONE Discontinued Medications Generic Name Dose Route Start Last Admin Trade Name Margaux PRN Reason Stop Dose Admin Azithromycin 500 mg 07/09/21 19:24 Azithromycin 250 Mg Tab PO 07/09/21 19:25 ONETIME STA Iopamidol 100 ml 07/09/21 18:05 07/09/21 18:06 Iopamidol 755 Mg/Ml 500 Ml Multipack Bottle IVPUSH 07/09/21 18:06 100 ml ONETIME STA Administration - Re-Assessments/Exams Free Text/Narrative Re-Assessment/Exam: 07/09/21 19:31 Patient was signed out to me from previous provider. Patient CT PE was negative. Patient be admitted and started on antibiotics for possible pneumonia. Departure - Departure Time of Disposition: 19:32 Condition: Good - Discharge Information *PRESCRIPTION DRUG MONITORING PROGRAM REVIEWED*: Not Applicable *COPY OF PRESCRIPTION DRUG MONITORING REPORT IN PATIENT [place]: Not Applicable Sepsis Event Note (ED) - Focused Exam Vital Signs: Vital Signs Temp Pulse Resp BP Pulse Ox 07/09/21 18:55 99 126/79 94 L 07/09/21 15:56 97.5 F 110 H 17 126/80 89 L - My Orders Last 24 Hours: My Active Orders 07/09/21 19:23 INFLUENZA A+B AG SCREEN [RM] Stat 07/09/21 19:24 cefTRIAXone [Rocephin in Dextrose,Iso-Osm 1 GM/50 ML] 1 gm Premix Bag 1 bag IV ONETIME Isolation [COMM] Routine 07/09/21 19:30 Patient Status [ADT] Routine Azithromycin [Zithromax] 500 mg Sodium Chloride 0.9% [Normal Saline (AdvBag)] 250 ml IV ONETIME - Assessment/Plan Last 24 Hours: My Active Orders 07/09/21 19:23 INFLUENZA A+B AG SCREEN [RM] Stat 07/09/21 19:24 cefTRIAXone [Rocephin in Dextrose,Iso-Osm 1 GM/50 ML] 1 gm Premix Bag 1 bag IV ONETIME Isolation [COMM] Routine 07/09/21 19:30 Patient Status [ADT] Routine Azithromycin [Zithromax] 500 mg Sodium Chloride 0.9% [Normal Saline (AdvBag)] 250 ml IV ONETIME
[2021-07-09] MEDS ORDERED: cefTRIAXone 1 GM in Premix Bag 1 BAG IV ONE (19:24)
[2021-07-09] MEDS ORDERED: cefTRIAXone 2 GM in Premix Bag 1 BAG IV ONE (19:24)
[2021-07-09] MEDS ORDERED: Azithromycin 250 MG Tab PO STA (19:24)
[2021-07-09] MEDS ORDERED: Azithromycin 500 MG in Sodium Chloride 0.9% 250 ML IV SCH (19:30)
--- NOTE | 2021-07-09 23:45 | PCM.HP.2 ---
H&P History of Present Illness - General Date of Service: 07/09/21 Admit Problem/Dx: Admission Diagnosis/Problem Admission Diagnosis/Problem Pneumonia - History of Present Illness Initial Comments - Free Text/Narative: 61 yo male who presented to the ED to have martha removed from his scalp. Patient suffered a head laceration when he fell last week while at work due to what he thought might be a seizure. He denies loosing consciousness. 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 In the ED he was noted to be hypoxic. Patient reports some chest soreness in his lower chest wall due to his fall. He reports cold symptoms such as chest congestion and cough. He denies any shortness of breath, or fevers. - Related Data Allergies/Adverse Reactions: Allergies Allergy/AdvReac Type Severity Reaction Status Date / Time Sulfa (Sulfonamide Allergy Rash Verified 07/09/21 22:45 Antibiotics) Home Medications: Home Meds . [No Known Home Meds] 03/12/19 [History] Past Medical History HEENT History: Reports: None Cardiovascular History: Reports: None Respiratory History: Reports: None Gastrointestinal History: Reports: None Genitourinary History: Reports: None Musculoskeletal History: Reports: Fracture Neurological History: Reports: Seizure, Other (See Below) Other Neuro History: Pineal tumor Psychiatric History: Reports: None Endocrine/Metabolic History: Reports: None Hematologic History: Reports: None Immunologic History: Reports: None Oncologic (Cancer) History: Reports: Other (See Below) Other Oncologic History: scalp Dermatologic History: Reports: Benign Melanoma - Infectious Disease History Infectious Disease History: Reports: None - Past Surgical History Head Surgeries/Procedures: Reports: None HEENT Surgical History: Reports: Tonsillectomy GI Surgical History: Reports: Appendectomy Neurological Surgical History: Reports: Other (See Below) Other Neurological Surgeries/Procedures: 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 Oncologic Surgical History: Reports: None Other Oncologic Surgeries/Procedures: scalp cancer 2010 Dermatological Surgical History: Reports: Other (See Below) Social & Family History - Family History Family Medical History: No Pertinent Family History - Tobacco Use Tobacco Use Status *Q: Never Tobacco User - Caffeine Use Caffeine Use: Reports: Coffee, Soda - Recreational Drug Use Recreational Drug Use: No H&P Review of Systems - Review of Systems: Review Of Systems: Comprehensive ROS is negative, except as noted in HPI. Exam - Exam Exam: See Below - Vital Signs Vital Signs: Last Vital Signs Temp 36.4 C 07/09/21 15:56 Pulse 99 07/09/21 18:55 Resp 17 07/09/21 15:56 BP 126/79 07/09/21 18:55 Pulse Ox 94 L 07/09/21 18:55 Weight: 113.398 kg - Exam General: Alert, Oriented HEENT: Mucosa Moist & [place] Neck: Supple Lungs: Clear to Auscultation, Normal Respiratory Effort Cardiovascular: Regular Rate, Regular Rhythm GI/Abdominal Exam: Soft, Non-Tender, No Distention Extremities: Non-Tender, No Pedal Edema - Patient Data Lab Results Last 24 hrs: Laboratory Results - last 24 hr 07/09/21 07/09/21 07/09/21 Range/Units 15:49 16:26 16:26 WBC 14.34 H (4.0-11.0) K/uL RBC 5.77 (4.50-5.90) M/uL Hgb 18.6 H (13.0-17.0) g/dL Hct 52.4 H (38.0-50.0) % MCV 90.8 (80.0-98.0) fL MCH 32.2 H (27.0-32.0) pg MCHC 35.5 (31.0-37.0) g/dL RDW Std Deviation 41.7 (28.0-62.0) fl RDW Coeff of Lupillo 13 (11.0-15.0) % Plt Count 370 (150-400) K/uL MPV 11.20 (7.40-12.00) fL Add Manual Diff YES Neutrophils % (Manual) 76 (48.0-80.0) % Band Neutrophils % 2 % Lymphocytes % (Manual) 16 (16.0-40.0) % Monocytes % (Manual) 3 (0.0-15.0) % Eosinophils % (Manual) 3 (0.0-7.0) % Nucleated RBC % 0.0 /100WBC Absolute Seg Neuts 10.9 H (1.4-5.7) Band Neutrophils # 0.3 Lymphocytes # (Manual) 2.3 (0.6-2.4) Monocytes # (Manual) 0.4 (0.0-0.8) Eosinophils # (Manual) 0.4 (0.0-0.7) Nucleated RBCs # 0 K/uL INR D-Dimer, Quantitative (0.0-0.50) mg/L FEU Sodium 142 (136-148) mmol/L Potassium 3.6 (3.5-5.1) mmol/L Chloride 103 (98-107) mmol/L Carbon Dioxide 24.8 (21.0-32.0) mmol/L BUN 19 H (7.0-18.0) mg/dL Creatinine 1.1 (0.8-1.3) mg/dL Est Cr Clr Drug Dosing 80.71 mL/min Estimated GFR (MDRD) > 60.0 ml/min Glucose 150 H (74-106) mg/dL Lactic Acid (0.4-2.0) mmol/L Calcium 8.6 (8.5-10.1) mg/dL Magnesium 2.6 H (1.8-2.4) mg/dL Total Bilirubin (0.2-1.0) mg/dL Troponin I < 0.050 (0.000-0.056) ng/mL SARS-CoV-2 RNA (AN) NEGATIVE (NEGATIVE) 07/09/21 07/09/21 07/09/21 Range/Units 16:26 16:26 16:26 WBC (4.0-11.0) K/uL RBC (4.50-5.90) M/uL Hgb (13.0-17.0) g/dL Hct (38.0-50.0) % MCV (80.0-98.0) fL MCH (27.0-32.0) pg MCHC (31.0-37.0) g/dL RDW Std Deviation (28.0-62.0) fl RDW Coeff of Lupillo (11.0-15.0) % Plt Count (150-400) K/uL MPV (7.40-12.00) fL Add Manual Diff Neutrophils % (Manual) (48.0-80.0) % Band Neutrophils % % Lymphocytes % (Manual) (16.0-40.0) % Monocytes % (Manual) (0.0-15.0) % Eosinophils % (Manual) (0.0-7.0) % Nucleated RBC % /100WBC Absolute Seg Neuts (1.4-5.7) Band Neutrophils # Lymphocytes # (Manual) (0.6-2.4) Monocytes # (Manual) (0.0-0.8) Eosinophils # (Manual) (0.0-0.7) Nucleated RBCs # K/uL INR 1.09 D-Dimer, Quantitative 0.86 H (0.0-0.50) mg/L FEU Sodium (136-148) mmol/L Potassium (3.5-5.1) mmol/L Chloride (98-107) mmol/L Carbon Dioxide (21.0-32.0) mmol/L BUN (7.0-18.0) mg/dL Creatinine (0.8-1.3) mg/dL Est Cr Clr Drug Dosing mL/min Estimated GFR (MDRD) ml/min Glucose (74-106) mg/dL Lactic Acid (0.4-2.0) mmol/L Calcium (8.5-10.1) mg/dL Magnesium (1.8-2.4) mg/dL Total Bilirubin 1.9 H (0.2-1.0) mg/dL Troponin I (0.000-0.056) ng/mL SARS-CoV-2 RNA (AN) (NEGATIVE) 07/09/21 Range/Units 19:48 WBC (4.0-11.0) K/uL RBC (4.50-5.90) M/uL Hgb (13.0-17.0) g/dL Hct (38.0-50.0) % MCV (80.0-98.0) fL MCH (27.0-32.0) pg MCHC (31.0-37.0) g/dL RDW Std Deviation (28.0-62.0) fl RDW Coeff of Lupillo (11.0-15.0) % Plt Count (150-400) K/uL MPV (7.40-12.00) fL Add Manual Diff Neutrophils % (Manual) (48.0-80.0) % Band Neutrophils % % Lymphocytes % (Manual) (16.0-40.0) % Monocytes % (Manual) (0.0-15.0) % Eosinophils % (Manual) (0.0-7.0) % Nucleated RBC % /100WBC Absolute Seg Neuts (1.4-5.7) Band Neutrophils # Lymphocytes # (Manual) (0.6-2.4) Monocytes # (Manual) (0.0-0.8) Eosinophils # (Manual) (0.0-0.7) Nucleated RBCs # K/uL INR D-Dimer, Quantitative (0.0-0.50) mg/L FEU Sodium (136-148) mmol/L Potassium (3.5-5.1) mmol/L Chloride (98-107) mmol/L Carbon Dioxide (21.0-32.0) mmol/L BUN (7.0-18.0) mg/dL Creatinine (0.8-1.3) mg/dL Est Cr Clr Drug Dosing mL/min Estimated GFR (MDRD) ml/min Glucose (74-106) mg/dL Lactic Acid 1.8 (0.4-2.0) mmol/L Calcium (8.5-10.1) mg/dL Magnesium (1.8-2.4) mg/dL Total Bilirubin (0.2-1.0) mg/dL Troponin I (0.000-0.056) ng/mL SARS-CoV-2 RNA (AN) (NEGATIVE) Result Diagrams: 07/09/21 16:26 07/09/21 16:26 Jose Results Last 24 hrs: Microbiology 07/09/21 15:49 Influenza Type A Antigen Screen - Final Nasopharyngeal Swab NEGATIVE INFLUENZA A VIRUS AG REFERENCE RANGE: NEGATIVE Influenza Type B Antigen Screen - Final NEGATIVE INFLUENZA B VIRUS AG REFERENCE RANGE: NEGATIVE 07/09/21 19:30 Anaerobic Blood Culture - Final Blood - Venous Sepsis Event Note - Evaluation Sepsis Screening Result: Possible Sepsis Risk - Focused Exam Vital Signs: Vital Signs Temp Pulse Resp BP Pulse Ox 07/09/21 18:55 99 126/79 94 L 07/09/21 15:56 36.4 C 110 H 17 126/80 89 L - Problem List (1) Pneumonia SNOMED Code(s): 302606100 ICD Code: J18.9 - PNEUMONIA, UNSPECIFIED ORGANISM Status: Acute Current V isit: Yes (2) Hypoxia SNOMED Code(s): 272072433 ICD Code: R09.02 - HYPOXEMIA Status: Acute Current Visit: Yes Problem List Initiated/Reviewed/Updated: Yes Orders Last 24hrs: Active Orders 24 hr Category Date Time Status Patient Status [ADT] Routine ADT 07/09/21 19:30 Active Antiembolic Devices [RC] PER UNIT ROUTINE Care 07/09/21 23:35 Ordered Oxygen Therapy [RC] PRN Care 07/09/21 23:35 Ordered Up ad Ally [RC] ASDIRECTED Care 07/09/21 23:35 Ordered VTE/DVT Education [RC] PER UNIT ROUTINE Care 07/09/21 23:35 Ordered Vital Signs [RC] Q4H Care 07/09/21 23:35 Ordered Regular Diet [DIET] Diet 07/09/21 Breakfast Ordered CBC WITH AUTO DIFF [HEME] AM Lab 07/10/21 05:11 Ordered COMPREHENSIVE METABOLIC PN,CMP [CHEM] AM Lab 07/10/21 05:11 Ordered CULTURE BLOOD [BC] Stat Lab 07/09/21 19:30 Results CULTURE BLOOD [BC] Stat Lab 07/09/21 19:48 Received Azithromycin [Zithromax] Med 07/10/21 20:00 Ordered 500 mg IV Q24H Azithromycin [Zithromax] 500 mg Med 07/09/21 19:30 Active Sodium Chloride 0.9% [Normal Saline (AdvBag)] 250 ml IV ONETIME Enoxaparin [Lovenox] Med 07/09/21 23:45 Ordered 40 mg SUBCUT Q24H Lactated Ringers [Ringers, Lactated] 1,000 ml Med 07/09/21 19:15 Active IV ASDIRECTED cefTRIAXone [Rocephin] 1 gm Med 07/10/21 20:00 Ordered Sodium Chloride 0.9% [Normal Saline] 50 ml IV Q24H Blood Culture x2 Reflex Set [OM.PC] Stat Oth 07/09/21 19:04 Ordered Isolation [COMM] Routine Oth 07/09/21 19:24 Active Sequential Compression Device [OM.PC] Per Unit Routine Oth 07/09/21 23:35 Ordered Resuscitation Status Routine Resus Stat 07/09/21 23:35 Ordered Medication Orders Azithromycin (Azithromycin 500 Mg Vial) 500 mg IV Q24H ISAMAR Enoxaparin Sodium (Enoxaparin 40 Mg/0.4 Ml Syringe) 40 mg SUBCUT Q24H ISAMAR Lactated Ringer's (Ringers, Lactated) 1,000 mls @ 999 mls/hr IV ASDIRECTED [facility] Last Admin: 07/09/21 19:14 Dose: 999 mls/hr Documented by: LESLIE Azithromycin 500 mg/ Sodium (Chloride) 250 mls @ 250 mls/hr IV ONETIME [facility] Last Admin: 07/09/21 20:03 Dose: 250 mls/hr Documented by: LESLIE Ceftriaxone Sodium 1 gm/ (Sodium Chloride) 50 mls @ 100 mls/hr IV Q24H [facility] Assessment/Plan Comment:: 61 yo male admitted for community acquired pneumonia. We will treat with Rocephin and azithromycin
[2021-07-10] MEDS: Enoxaparin 40 MG/0.4 ML Syringe SUBCUT SCH ×2 (00:16→20:40)
[2021-07-10 07:26] LABS: BLOOD UREA NITROGEN,BUN 16 mg/dL (7.0-18.0); CARBON DIOXIDE,CO2 24.9 mmol/L (21.0-32.0); CHLORIDE,CL 105 mmol/L (98-107); GLUCOSE RANDOM 106 mg/dL (74-106); POTASSIUM,K 3.4 mmol/L (3.5-5.1); SODIUM,NA 142 mmol/L (136-148)
--- NOTE | 2021-07-10 18:28 | PCM.PN ---
- General Info Date of Service: 07/10/21 - Review of Systems Systems Review Comment:: feeling well, cough improving - Patient Data Vitals - Most Recent: Last Vital Signs Temp 36.4 C 07/10/21 12:00 Pulse 75 07/10/21 12:00 Resp 16 07/10/21 12:00 BP 126/87 07/10/21 12:00 Pulse Ox 94 L 07/10/21 12:00 Weight - Most Recent: 106.125 kg I&O - Last 24 Hours: Intake & Output 07/10/21 07/10/21 07/10/21 06:59 14:59 22:59 Intake Total 1850 650 Output Total 800 825 Balance 1050 -175 Lab Results Last 24 Hours: Laboratory Results - last 24 hr 07/09/21 07/09/21 07/09/21 Range/Units 16:26 16:26 19:48 WBC (4.0-11.0) K/uL RBC (4.50-5.90) M/uL Hgb (13.0-17.0) g/dL Hct (38.0-50.0) % MCV (80.0-98.0) fL MCH (27.0-32.0) pg MCHC (31.0-37.0) g/dL RDW Std Deviation (28.0-62.0) fl RDW Coeff of Lupillo (11.0-15.0) % Plt Count (150-400) K/uL MPV (7.40-12.00) fL Neut % (Auto) (48.0-80.0) % Lymph % (Auto) (16.0-40.0) % [place] % (Auto) (0.0-15.0) % Eos % (Auto) (0.0-7.0) % Baso % (Auto) (0.0-1.5) % Neut # (Auto) (1.4-5.7) K/uL Lymph # (Auto) (0.6-2.4) K/uL [place] # (Auto) (0.0-0.8) K/uL Eos # (Auto) (0.0-0.7) K/uL Baso # (Auto) (0.0-0.1) K/uL Nucleated RBC % /100WBC Nucleated RBCs # K/uL INR 1.09 Sodium (136-148) mmol/L Potassium (3.5-5.1) mmol/L Chloride (98-107) mmol/L Carbon Dioxide (21.0-32.0) mmol/L BUN (7.0-18.0) mg/dL Creatinine (0.8-1.3) mg/dL Est Cr Clr Drug Dosing mL/min Estimated GFR (MDRD) ml/min Glucose (74-106) mg/dL Lactic Acid 1.8 (0.4-2.0) mmol/L Calcium (8.5-10.1) mg/dL Total Bilirubin 1.9 H (0.2-1.0) mg/dL AST (15-37) IU/L ALT (14-63) IU/L Alkaline Phosphatase (46-116) U/L Troponin I (0.000-0.056) ng/mL Total Protein (6.4-8.2) g/dL Albumin (3.4-5.0) g/dL Globulin (2.6-4.0) g/dL Albumin/Globulin Ratio (0.9-1.6) 07/09/21 07/10/21 07/10/21 Range/Units 23:50 05:37 05:37 WBC 11.91 H (4.0-11.0) K/uL RBC 4.82 (4.50-5.90) M/uL Hgb 15.1 (13.0-17.0) g/dL Hct 44.4 (38.0-50.0) % MCV 92.1 (80.0-98.0) fL MCH 31.3 (27.0-32.0) pg MCHC 34.0 (31.0-37.0) g/dL RDW Std Deviation 42.5 (28.0-62.0) fl RDW Coeff of Lupillo 13 (11.0-15.0) % Plt Count 324 (150-400) K/uL MPV 11.50 (7.40-12.00) fL Neut % (Auto) 70.9 (48.0-80.0) % Lymph % (Auto) 17.5 (16.0-40.0) % [place] % (Auto) 9.4 (0.0-15.0) % Eos % (Auto) 1.9 (0.0-7.0) % Baso % (Auto) 0.3 (0.0-1.5) % Neut # (Auto) 8.4 H (1.4-5.7) K/uL Lymph # (Auto) 2.1 (0.6-2.4) K/uL [place] # (Auto) 1.1 H (0.0-0.8) K/uL Eos # (Auto) 0.2 (0.0-0.7) K/uL Baso # (Auto) 0.0 (0.0-0.1) K/uL Nucleated RBC % 0.0 /100WBC Nucleated RBCs # 0 K/uL INR Sodium 142 (136-148) mmol/L Potassium 3.4 L (3.5-5.1) mmol/L Chloride 105 (98-107) mmol/L Carbon Dioxide 24.9 (21.0-32.0) mmol/L BUN 16 (7.0-18.0) mg/dL Creatinine 0.9 (0.8-1.3) mg/dL Est Cr Clr Drug Dosing 98.17 mL/min Estimated GFR (MDRD) > 60.0 ml/min Glucose 106 (74-106) mg/dL Lactic Acid (0.4-2.0) mmol/L Calcium 7.6 L (8.5-10.1) mg/dL Total Bilirubin 1.6 H (0.2-1.0) mg/dL AST 32 (15-37) IU/L ALT 44 (14-63) IU/L Alkaline Phosphatase 45 L (46-116) U/L Troponin I < 0.050 (0.000-0.056) ng/mL Total Protein 6.2 L (6.4-8.2) g/dL Albumin 2.6 L (3.4-5.0) g/dL Globulin 3.6 (2.6-4.0) g/dL Albumin/Globulin Ratio 0.7 L (0.9-1.6) 07/10/21 Range/Units 05:37 WBC (4.0-11.0) K/uL RBC (4.50-5.90) M/uL Hgb (13.0-17.0) g/dL Hct (38.0-50.0) % MCV (80.0-98.0) fL MCH (27.0-32.0) pg MCHC (31.0-37.0) g/dL RDW Std Deviation (28.0-62.0) fl RDW Coeff of Lupillo (11.0-15.0) % Plt Count (150-400) K/uL MPV (7.40-12.00) fL Neut % (Auto) (48.0-80.0) % Lymph % (Auto) (16.0-40.0) % [place] % (Auto) (0.0-15.0) % Eos % (Auto) (0.0-7.0) % Baso % (Auto) (0.0-1.5) % Neut # (Auto) (1.4-5.7) K/uL Lymph # (Auto) (0.6-2.4) K/uL [place] # (Auto) (0.0-0.8) K/uL Eos # (Auto) (0.0-0.7) K/uL Baso # (Auto) (0.0-0.1) K/uL Nucleated RBC % /100WBC Nucleated RBCs # K/uL INR Sodium (136-148) mmol/L Potassium (3.5-5.1) mmol/L Chloride (98-107) mmol/L Carbon Dioxide (21.0-32.0) mmol/L BUN (7.0-18.0) mg/dL Creatinine (0.8-1.3) mg/dL Est Cr Clr Drug Dosing mL/min Estimated GFR (MDRD) ml/min Glucose (74-106) mg/dL Lactic Acid (0.4-2.0) mmol/L Calcium (8.5-10.1) mg/dL Total Bilirubin (0.2-1.0) mg/dL AST (15-37) IU/L ALT (14-63) IU/L Alkaline Phosphatase (46-116) U/L Troponin I < 0.050 (0.000-0.056) ng/mL Total Protein (6.4-8.2) g/dL Albumin (3.4-5.0) g/dL Globulin (2.6-4.0) g/dL Albumin/Globulin Ratio (0.9-1.6) Jose Results Last 24 Hours: Microbiology 07/09/21 15:49 Influenza Type A Antigen Screen - Final Nasopharyngeal Swab NEGATIVE INFLUENZA A VIRUS AG REFERENCE RANGE: NEGATIVE Influenza Type B Antigen Screen - Final NEGATIVE INFLUENZA B VIRUS AG REFERENCE RANGE: NEGATIVE 07/09/21 19:30 Anaerobic Blood Culture - Final Blood - Venous Med Orders - Current: Current Medications Enoxaparin Sodium (Enoxaparin 40 Mg/0.4 Ml Syringe) 40 mg SUBCUT BEDTIME ISAMAR Last Admin: 07/10/21 00:16 Dose: 40 mg Documented by: Azithromycin 500 mg/ Sodium (Chloride) 250 mls @ 250 mls/hr IV BEDTIME ISAMAR Ceftriaxone Sodium/Dextrose 1 (gm/ Premix) 50 mls @ 100 mls/hr IV Q24H IS[facility] Discontinued Medications Azithromycin (Azithromycin 250 Mg Tab) 500 mg PO ONETIME STA Stop: 07/09/21 19:25 Last Admin: 07/09/21 19:52 Dose: Not Given Documented by: Lactated Ringer's (Ringers, Lactated) 1,000 mls @ 999 mls/hr IV ASDIRECTED ISAMAR Last Admin: 07/09/21 19:14 Dose: 999 mls/hr Documented by: Ceftriaxone Sodium/Dextrose 2 (gm/ Premix) 50 mls @ 100 mls/hr IV ONETIME ONE Stop: 07/09/21 19:53 Last Admin: 07/09/21 19:51 Dose: Not Given Documented by: Azithromycin 500 mg/ Sodium (Chloride) 250 mls @ 250 mls/hr IV ONETIME ISAMAR Last Admin: 07/09/21 20:03 Dose: 250 mls/hr Documented by: Ceftriaxone Sodium/Dextrose 1 (gm/ Premix) 50 mls @ 100 mls/hr IV ONETIME ONE Stop: 07/09/21 19:53 Last Admin: 07/09/21 19:51 Dose: 100 mls/hr Documented by: Iopamidol (Iopamidol 755 Mg/Ml 500 Ml Multipack Bottle) 100 ml IVPUSH ONETIME STA Stop: 07/09/21 18:06 Last Admin: 07/09/21 18:06 Dose: 100 ml Documented by: - Exam General: Alert, Oriented Neck: Supple Lungs: Clear to Auscultation, Normal Respiratory Effort Cardiovascular: Regular Rate, Regular Rhythm GI/Abdominal Exam: Soft, Non-Tender Extremities: Non-Tender, No Pedal Edema Skin: Warm, Dry, Intact Neurological: No New Focal Deficit - Patient Data Lab Results Last 24 hrs: Laboratory Results - last 24 hr 07/09/21 07/09/21 07/09/21 Range/Units 16:26 16:26 19:48 WBC (4.0-11.0) K/uL RBC (4.50-5.90) M/uL Hgb (13.0-17.0) g/dL Hct (38.0-50.0) % MCV (80.0-98.0) fL MCH (27.0-32.0) pg MCHC (31.0-37.0) g/dL RDW Std Deviation (28.0-62.0) fl RDW Coeff of Lupillo (11.0-15.0) % Plt Count (150-400) K/uL MPV (7.40-12.00) fL Neut % (Auto) (48.0-80.0) % Lymph % (Auto) (16.0-40.0) % [place] % (Auto) (0.0-15.0) % Eos % (Auto) (0.0-7.0) % Baso % (Auto) (0.0-1.5) % Neut # (Auto) (1.4-5.7) K/uL Lymph # (Auto) (0.6-2.4) K/uL [place] # (Auto) (0.0-0.8) K/uL Eos # (Auto) (0.0-0.7) K/uL Baso # (Auto) (0.0-0.1) K/uL Nucleated RBC % /100WBC Nucleated RBCs # K/uL INR 1.09 Sodium (136-148) mmol/L Potassium (3.5-5.1) mmol/L Chloride (98-107) mmol/L Carbon Dioxide (21.0-32.0) mmol/L BUN (7.0-18.0) mg/dL Creatinine (0.8-1.3) mg/dL Est Cr Clr Drug Dosing mL/min Estimated GFR (MDRD) ml/min Glucose (74-106) mg/dL Lactic Acid 1.8 (0.4-2.0) mmol/L Calcium (8.5-10.1) mg/dL Total Bilirubin 1.9 H (0.2-1.0) mg/dL AST (15-37) IU/L ALT (14-63) IU/L Alkaline Phosphatase (46-116) U/L Troponin I (0.000-0.056) ng/mL Total Protein (6.4-8.2) g/dL Albumin (3.4-5.0) g/dL Globulin (2.6-4.0) g/dL Albumin/Globulin Ratio (0.9-1.6) 07/09/21 07/10/21 07/10/21 Range/Units 23:50 05:37 05:37 WBC 11.91 H (4.0-11.0) K/uL RBC 4.82 (4.50-5.90) M/uL Hgb 15.1 (13.0-17.0) g/dL Hct 44.4 (38.0-50.0) % MCV 92.1 (80.0-98.0) fL MCH 31.3 (27.0-32.0) pg MCHC 34.0 (31.0-37.0) g/dL RDW Std Deviation 42.5 (28.0-62.0) fl RDW Coeff of Lupillo 13 (11.0-15.0) % Plt Count 324 (150-400) K/uL MPV 11.50 (7.40-12.00) fL Neut % (Auto) 70.9 (48.0-80.0) % Lymph % (Auto) 17.5 (16.0-40.0) % [place] % (Auto) 9.4 (0.0-15.0) % Eos % (Auto) 1.9 (0.0-7.0) % Baso % (Auto) 0.3 (0.0-1.5) % Neut # (Auto) 8.4 H (1.4-5.7) K/uL Lymph # (Auto) 2.1 (0.6-2.4) K/uL [place] # (Auto) 1.1 H (0.0-0.8) K/uL Eos # (Auto) 0.2 (0.0-0.7) K/uL Baso # (Auto) 0.0 (0.0-0.1) K/uL Nucleated RBC % 0.0 /100WBC Nucleated RBCs # 0 K/uL INR Sodium 142 (136-148) mmol/L Potassium 3.4 L (3.5-5.1) mmol/L Chloride 105 (98-107) mmol/L Carbon Dioxide 24.9 (21.0-32.0) mmol/L BUN 16 (7.0-18.0) mg/dL Creatinine 0.9 (0.8-1.3) mg/dL Est Cr Clr Drug Dosing 98.17 mL/min Estimated GFR (MDRD) > 60.0 ml/min Glucose 106 (74-106) mg/dL Lactic Acid (0.4-2.0) mmol/L Calcium 7.6 L (8.5-10.1) mg/dL Total Bilirubin 1.6 H (0.2-1.0) mg/dL AST 32 (15-37) IU/L ALT 44 (14-63) IU/L Alkaline Phosphatase 45 L (46-116) U/L Troponin I < 0.050 (0.000-0.056) ng/mL Total Protein 6.2 L (6.4-8.2) g/dL Albumin 2.6 L (3.4-5.0) g/dL Globulin 3.6 (2.6-4.0) g/dL Albumin/Globulin Ratio 0.7 L (0.9-1.6) 07/10/21 Range/Units 05:37 WBC (4.0-11.0) K/uL RBC (4.50-5.90) M/uL Hgb (13.0-17.0) g/dL Hct (38.0-50.0) % MCV (80.0-98.0) fL MCH (27.0-32.0) pg MCHC (31.0-37.0) g/dL RDW Std Deviation (28.0-62.0) fl RDW Coeff of Lupillo (11.0-15.0) % Plt Count (150-400) K/uL MPV (7.40-12.00) fL Neut % (Auto) (48.0-80.0) % Lymph % (Auto) (16.0-40.0) % [place] % (Auto) (0.0-15.0) % Eos % (Auto) (0.0-7.0) % Baso % (Auto) (0.0-1.5) % Neut # (Auto) (1.4-5.7) K/uL Lymph # (Auto) (0.6-2.4) K/uL [place] # (Auto) (0.0-0.8) K/uL Eos # (Auto) (0.0-0.7) K/uL Baso # (Auto) (0.0-0.1) K/uL Nucleated RBC % /100WBC Nucleated RBCs # K/uL INR Sodium (136-148) mmol/L Potassium (3.5-5.1) mmol/L Chloride (98-107) mmol/L Carbon Dioxide (21.0-32.0) mmol/L BUN (7.0-18.0) mg/dL Creatinine (0.8-1.3) mg/dL Est Cr Clr Drug Dosing mL/min Estimated GFR (MDRD) ml/min Glucose (74-106) mg/dL Lactic Acid (0.4-2.0) mmol/L Calcium (8.5-10.1) mg/dL Total Bilirubin (0.2-1.0) mg/dL AST (15-37) IU/L ALT (14-63) IU/L Alkaline Phosphatase (46-116) U/L Troponin I < 0.050 (0.000-0.056) ng/mL Total Protein (6.4-8.2) g/dL Albumin (3.4-5.0) g/dL Globulin (2.6-4.0) g/dL Albumin/Globulin Ratio (0.9-1.6) Result Diagrams: 07/10/21 05:37 07/10/21 05:37 Jose Results Last 24 hrs: Microbiology 07/09/21 15:49 Influenza Type A Antigen Screen - Final Nasopharyngeal Swab NEGATIVE INFLUENZA A VIRUS AG REFERENCE RANGE: NEGATIVE Influenza Type B Antigen Screen - Final NEGATIVE INFLUENZA B VIRUS AG REFERENCE RANGE: NEGATIVE 07/09/21 19:30 Anaerobic Blood Culture - Final Blood - Venous Sepsis Event Note - Evaluation Sepsis Screening Result: No Definite Risk - Focused Exam Vital Signs: Vital Signs Temp Pulse Resp BP Pulse Ox 07/10/21 12:00 36.4 C 75 16 126/87 94 L 07/10/21 08:00 36.4 C 73 16 126/74 95 - Problem List & Annotations (1) Pneumonia SNOMED Code(s): 131153455 Code(s): J18.9 - PNEUMONIA, UNSPECIFIED ORGANISM Status: Acute Current Visit: Yes (2) Hypoxia SNOMED Code(s): 709316738 Code(s): R09.02 - HYPOXEMIA Status: Acute Current Visit: Yes - Problem List Review Problem List Initiated/Reviewed/Updated: Yes - My Orders Last 24 Hours: My Active Orders 07/09/21 23:35 Antiembolic Devices [RC] PER UNIT ROUTINE Oxygen Therapy [RC] PRN Up ad Ally [RC] ASDIRECTED VTE/DVT Education [RC] PER UNIT ROUTINE Vital Signs [RC] Q4H Sequential Compression Device [OM.PC] Per Unit Routine Resuscitation Status Routine 07/09/21 23:40 Cardiac Monitoring [RC] . DIRECTED 07/09/21 23:45 Enoxaparin [Lovenox] 40 mg SUBCUT BEDTIME 07/10/21 20:00 cefTRIAXone [Rocephin in Dextrose,Iso-Osm 1 GM/50 ML] 1 gm Premix Bag 1 bag IV Q24H 07/10/21 21:00 Azithromycin [Zithromax] 500 mg Sodium Chloride 0.9% [Normal Saline (AdvBag)] 250 ml IV BEDTIME - Plan Plan:: 61 yo male admitted for community acquired pneumonia. requiring 1 L NC to keep sats above 90%. We will continue Rocephin and azithromycin. Anticipate discharge home tomorrow.
[2021-07-10] MEDS ORDERED: cefTRIAXone 1 GM in Premix Bag 1 BAG IV SCH (20:00)
[2021-07-10] MEDS ORDERED: cefTRIAXone 1 GM in Sodium Chloride 0.9% 50 ML IV SCH (20:00)
[2021-07-10] MEDS ORDERED: Azithromycin 500 MG Vial IV SCH (20:00)
[2021-07-10] MEDS ORDERED: Azithromycin 500 MG in Sodium Chloride 0.9% 250 ML IV SCH (21:00)
[2021-07-11] MEDS ORDERED: Sodium Chloride 0.65% Nasal Spray 45 ML Bottle NAS PRN (01:09)
--- NOTE | 2021-07-11 07:17 | PCM.DCSUM1 ---
Discharge Summary - Discharge Data Discharge Date: 07/11/21 Discharge Disposition: Home, Self-Care 01 Condition: Good - Referral to Home Health Primary Care Physician: PCP None - Discharge Diagnosis/Problem(s) (1) Pneumonia SNOMED Code(s): 699381608 ICD Code: J18.9 - PNEUMONIA, UNSPECIFIED ORGANISM Status: Acute Current Visit: Yes (2) Hypoxia SNOMED Code(s): 413479134 ICD Code: R09.02 - HYPOXEMIA Status: Acute Current Visit: Yes - Patient Summary/Data Hospital Course: 61 yo male who presented to the ED to have martha removed from his scalp. Patient suffered a head laceration when he fell last week while at work due to what he thought might be a seizure. He denies loosing consciousness. 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 In the ED he was noted to be hypoxic. Patient reports some chest soreness in his lower chest wall due to his fall. He reports cold symptoms such as chest congestion and cough. He denies any shortness of breath, or fevers. Work up was significant for a WBC of 14,000 and negative COVID test. CT chest angio reported patchy ground glass opacities. He was treated for a community acquired pneumonia with Rocephin and Azithromycin. He was weaned off his oxygen and today is ready to go home. He was discharged with three more days of oral antibiotics. He is to follow up with his primary care provider and Neurology. - Patient Instructions Other/Special Instructions: Please notify provider of fevers, chest pain, or shortness of breath. You will be giving prescriptions for antibitoitics for your pneumonia. Start taking antibiotics Cefdinir and Azithromycin at bedtime today (07/11/21). Watch out for any rash or diarrhea while on antibiotics. Please follow up with her primary care provider in two weeks. - Discharge Plan *PRESCRIPTION DRUG MONITORING PROGRAM REVIEWED*: Not Applicable *COPY OF PRESCRIPTION DRUG MONITORING REPORT IN PATIENT [place]: Not Applicable Prescriptions/Med Rec: Azithromycin 500 mg PO DAILY #3 tablet Cefdinir [Omnicef] 300 mg PO BID #6 cap Home Medications: Home Meds Azithromycin 500 mg PO DAILY #3 tablet 07/11/21 [Rx] Cefdinir [Omnicef] 300 mg PO BID #6 cap 07/11/21 [Rx] Patient Handouts: Hypoxia, Community-Acquired Pneumonia, Adult, [id number] Referrals: PCP,None [Primary Care Provider] - - Discharge Summary/Plan Comment DC Time >30 min.: No Total # of Minutes for Discharge Time: 20 - Patient Data Vitals - Most Recent: Last Vital Signs Temp 36.4 C 07/11/21 03:55 Pulse 73 07/11/21 03:55 Resp 20 07/11/21 03:55 BP 115/56 L 07/11/21 03:55 Pulse Ox 93 L 07/11/21 03:55 Weight - Most Recent: 106.125 kg I&O - Last 24 hours: Intake & Output 07/10/21 07/11/21 07/11/21 22:59 06:59 14:59 Intake Total 650 880 Output Total 825 750 Balance -175 130 Lab Results - Last 24 hrs: Laboratory Results - last 24 hr 07/10/21 07/10/21 07/11/21 Range/Units 05:37 05:37 06:09 Sodium 142 (136-148) mmol/L Potassium 3.4 L (3.5-5.1) mmol/L Chloride 105 (98-107) mmol/L Carbon Dioxide 24.9 (21.0-32.0) mmol/L BUN 16 (7.0-18.0) mg/dL Creatinine 0.9 (0.8-1.3) mg/dL Est Cr Clr Drug Dosing 98.17 mL/min Estimated GFR (MDRD) > 60.0 ml/min Glucose 106 (74-106) mg/dL POC Glucose 98 (70-99) mg/dL Calcium 7.6 L (8.5-10.1) mg/dL Total Bilirubin 1.6 H (0.2-1.0) mg/dL AST 32 (15-37) IU/L ALT 44 (14-63) IU/L Alkaline Phosphatase 45 L (46-116) U/L Troponin I < 0.050 (0.000-0.056) ng/mL Total Protein 6.2 L (6.4-8.2) g/dL Albumin 2.6 L (3.4-5.0) g/dL Globulin 3.6 (2.6-4.0) g/dL Albumin/Globulin Ratio 0.7 L (0.9-1.6) NOBLE Results - Last 24 hrs: Microbiology 07/09/21 19:48 Aerobic Blood Culture - Preliminary Blood - Venous - Lab Draw NO GROWTH AFTER 1 DAY Anaerobic Blood Culture - Preliminary NO GROWTH AFTER 1 DAY 07/09/21 19:30 Aerobic Blood Culture - Preliminary Blood - Venous NO GROWTH AFTER 1 DAY Anaerobic Blood Culture - Final Med Orders - Current: Current Medications Enoxaparin Sodium (Enoxaparin 40 Mg/0.4 Ml Syringe) 40 mg SUBCUT BEDTIME [facility] Last Admin: 07/10/21 20:40 Dose: 40 mg Documented by: Azithromycin 500 mg/ Sodium (Chloride) 250 mls @ 250 mls/hr IV BEDTIME [facility] Last Admin: 07/10/21 23:46 Dose: 250 mls/hr Documented by: Ceftriaxone Sodium/Dextrose 1 (gm/ Premix) 50 mls @ 100 mls/hr IV Q24H [facility] Last Admin: 07/10/21 20:41 Dose: 100 mls/hr Documented by: Sodium Chloride (Sodium Chloride 0.65% Nasal Dewy Rose 45 Ml Bottle) 1 ml ISABELA BID PRN PRN Reason: nasal congestion Discontinued Medications Azithromycin (Azithromycin 250 Mg Tab) 500 mg PO ONETIME STA Stop: 07/09/21 19:25 Last Admin: 07/09/21 19:52 Dose: Not Given Documented by: Lactated Ringer's (Ringers, Lactated) 1,000 mls @ 999 mls/hr IV ASDIRECTED [facility] Last Admin: 07/09/21 19:14 Dose: 999 mls/hr Documented by: Ceftriaxone Sodium/Dextrose 2 (gm/ Premix) 50 mls @ 100 mls/hr IV ONETIME ONE Stop: 07/09/21 19:53 Last Admin: 07/09/21 19:51 Dose: Not Given Documented by: Azithromycin 500 mg/ Sodium (Chloride) 250 mls @ 250 mls/hr IV ONETIME [facility] Last Admin: 07/09/21 20:03 Dose: 250 mls/hr Documented by: Ceftriaxone Sodium/Dextrose 1 (gm/ Premix) 50 mls @ 100 mls/hr IV ONETIME ONE Stop: 07/09/21 19:53 Last Admin: 07/09/21 19:51 Dose: 100 mls/hr Documented by: Iopamidol (Iopamidol 755 Mg/Ml 500 Ml Multipack Bottle) 100 ml IVPUSH ONETIME STA Stop: 07/09/21 18:06 Last Admin: 07/09/21 18:06 Dose: 100 ml Documented by:
[2021-07-11 08:00] VITALS: BP 136/80; PULSE 72
== END 2021-07-11 09:25 | disposition home or self-care (01) | DRG 195 ==
LOC: MW.ED 15:03 → MW.MS 19:30 → UNDOADMIN 19:45 → MW.MS 19:45
PROVIDERS: ADMIT Internal Medicine; ATTEND Internal Medicine
DX: J18.9 Pneumonia, unspecified organism (principal); R09.02 Hypoxemia; Z20.822 Contact with and (suspected) exposure to COVID-19; R00.0 Tachycardia, unspecified; Z91.81 History of falling; Z90.89 Acquired absence of other organs; Z98.890 Other specified postprocedural states; Z90.49 Acquired absence of other specified parts of digestive tract
CPT/HCPCS: 36415; 71045; 71045-26; 71275; 71275-26; 80048; 80053; 82247; 82947; 83605; 83735; 84484; 85025; 85379; 85610; 87040; 87804; 93005; 99285-25; A9270-GY; J0456; J0696; J1650; J7050; J7120; Q9967; U0002

== ENCOUNTER 2024-06-22 10:17 | Observation (INO) | payer OTHER ==
[~2024-06-22 10:17] MED LIST: Sodium Chloride 0.9% 10 ML Syringe FLUSH PRN; Sodium Chloride 0.9% 2.5 ML Syringe FLUSH PRN; Sodium Chloride 0.9% 20 ML SDV IV PRN
[2024-06-22 10:27] LABS: BASOPHILS PERCENT AUTO 0.8 % (0.0-1.0); EOSINOPHILS ABSOLUTE AUTO 0.11 K/uL (0.00-0.45); EOSINOPHILS PERCENT AUTO 0.8 % (0.0-6.0); HEMATOCRIT 50.7 % (42.0-52.0); HEMOGLOBIN 17.6 g/dL (14.0-18.0); IMMATURE GRAN ABSOLUTE AUTO 0.05 K/uL (0.00-0.05); IMMATURE GRAN PERCENT AUTO 0.4 % (0.0-0.4); LYMPHOCYTES ABSOLUTE AUTO 2.61 K/uL (1.00-4.80); LYMPHOCYTES PERCENT AUTO 19.7 % (24.0-44.0); MEAN CORPUSCULAR HEMOGLOBIN 31.7 pg (28.0-32.0); MEAN CORPUSCULAR HGB CONC 34.7 g/dL (32.0-36.0); MEAN CORPUSCULAR VOLUME 91.2 fL (83.0-99.0); MEAN PLATELET VOLUME 9.9 fL (9.4-12.4); MONOCYTES PERCENT AUTO 6.8 % (0.0-8.0); NEUTROPHILS ABSOLUTE AUTO 9.48 K/uL (1.80-7.70); NEUTROPHILS PERCENT AUTO 71.5 % (41.0-71.0); PLATELET COUNT,PLT 245 K/uL (150-400); RED BLOOD CELL COUNT 5.56 M/uL (4.52-5.90); WHITE BLOOD CELL COUNT,WBC 13.25 K/uL (3.9-11.3)
[2024-06-22] MEDS: Iopamidol 755 MG/ML 500 ML Multipack Bottle IVPUSH STA (10:40)
[2024-06-22 10:45] LABS: INR 1.11 (0.86-1.11); PTT,PARTIAL THROMBOPLSTIN TIME 29.2 SEC (23.9-30.7)
[2024-06-22 11:00] LABS: A/G RATIO 1.2 (0.9-1.6); ALBUMIN 4.3 g/dL (3.4-5.0); BILIRUBIN TOTAL 2.6 mg/dL (0.2-1.0); CALCIUM 9.7 mg/dL (8.5-10.1); CARBON DIOXIDE,CO2 25.7 mmol/L (21.0-32.0); CREATININE 1.2 mg/dL (0.8-1.3); EST CRCL DRUG DOSING (CG) 65.06 mL/min; POTASSIUM,K 4.5 mmol/L (3.5-5.1); PROTEIN TOTAL,TP 7.9 g/dL (6.4-8.2); TSH ULTRASENSITIVE 2.76 uIU/mL (0.36-3.74)
[2024-06-22 16:27] LABS: TSH ULTRASENSITIVE 2.7 uIU/mL (0.36-3.74)
[2024-06-22 16:33] LABS: HEMOGLOBIN A1C 5.4 %
[2024-06-22] MEDS: Aspirin 300 MG Supp RECTAL SCH (20:07)
[2024-06-22] MEDS: Sodium Chloride 0.9% 1,000 ML IV SCH (20:23)
[2024-06-22] MEDS: Aspirin 81 MG Tab.Chew SCH (20:47)
[2024-06-23 05:48] LABS: BASOPHILS ABSOLUTE AUTO 0.11 K/uL (0.00-0.20); BASOPHILS PERCENT AUTO 0.8 % (0.0-1.0); EOSINOPHILS ABSOLUTE AUTO 0.12 K/uL (0.00-0.45); EOSINOPHILS PERCENT AUTO 0.9 % (0.0-6.0); HEMATOCRIT 49.3 % (42.0-52.0); HEMOGLOBIN 16.8 g/dL (14.0-18.0); IMMATURE GRAN ABSOLUTE AUTO 0.06 K/uL (0.00-0.05); IMMATURE GRAN PERCENT AUTO 0.4 % (0.0-0.4); LYMPHOCYTES ABSOLUTE AUTO 2.72 K/uL (1.00-4.80); LYMPHOCYTES PERCENT AUTO 19.8 % (24.0-44.0); MEAN CORPUSCULAR HGB CONC 34.1 g/dL (32.0-36.0); MEAN PLATELET VOLUME 9.7 fL (9.4-12.4); MONOCYTES ABSOLUTE AUTO 1.14 K/uL (0.00-0.80); MONOCYTES PERCENT AUTO 8.3 % (0.0-8.0); NEUTROPHILS ABSOLUTE AUTO 9.62 K/uL (1.80-7.70); NEUTROPHILS PERCENT AUTO 69.8 % (41.0-71.0); PLATELET COUNT,PLT 243 K/uL (150-400); RED BLOOD CELL COUNT 5.42 M/uL (4.52-5.90); WHITE BLOOD CELL COUNT,WBC 13.77 K/uL (3.9-11.3)
[2024-06-23 06:29] LABS: A/G RATIO 1.3 (0.9-1.6); BILIRUBIN TOTAL 2.3 mg/dL (0.2-1.0); CALCIUM 8.9 mg/dL (8.5-10.1); CREATININE 1.1 mg/dL (0.8-1.3); EST CRCL DRUG DOSING (CG) 70.97 mL/min; POTASSIUM,K 4.5 mmol/L (3.5-5.1)
[2024-06-23 06:54] LABS: CARBON DIOXIDE,CO2 25.6 mmol/L (21.0-32.0)
[2024-06-23 11:35] LABS: AMPHETAMINES SCREEN, URINE NEGATIVE (CUTOFF=500); BARBITURATE SCREEN,URINE NEGATIVE (CUTOFF=200); BENZODIAZEPINES SCREEN,URINE NEGATIVE (CUTOFF=150); BUPRENORPHINE SCREEN,URINE NEGATIVE (CUTOFF=10); METHADONE SCREEN, URINE NEGATIVE (CUTOFF=200); METHAMPHETAMINES SCREEN, URINE NEGATIVE (CUTOFF=500); OXYCODONE SCREEN,URINE NEGATIVE (CUT0FF=100); PCP SCREEN,URINE NEGATIVE (CUTOFF=25); THC SCREEN,URINE 20 NG/ML NEGATIVE (CUTOFF=50)
[2024-06-23] MEDS: LORazepam 2 MG/ML SDV IVPUSH ONE (13:25)
[2024-06-23] MEDS: Gadobenate Dimeglumine 529 MG/ML 20 ML SDV IVPUSH ONE (13:42)
[2024-06-23] MEDS: LORazepam ORAL Concentrate 1MG/0.5ML U/D SL STA (19:15)
[2024-06-23 19:26] LABS: APPEARANCE,URINE CLOUDY; BILIRUBIN,URINE NEGATIVE (NEGATIVE); COLOR,URINE YELLOW; GLUCOSE,URINE NEGATIVE (NEGATIVE); KETONES,URINE 40 mg/dL (NEGATIVE); LEUKOCYTE ESTERASE,URINE NEGATIVE (NEGATIVE); NITRITE,URINE NEGATIVE (NEGATIVE); OCCULT BLOOD,URINE MODERATE (NEGATIVE); PROTEIN,URINE NEGATIVE (NEGATIVE); UROBILINOGEN,URINE 0.2 EU/dL (<2.0)
[2024-06-23 19:37] LABS: AMORPHOUS SEDIMENT,URINE MODERATE (NEGATIVE); BACTERIA,URINE 4+ (NEGATIVE); EPITHELIAL CELLS,URINE RARE (NONE-FEW); WBC,URINE 0-2 (0-5/HPF)
== END 2024-06-23 22:20 ==
LOC: MW.ED 10:17 → MW.MS 13:13
PROVIDERS: ADMIT Family Medicine; ATTEND Family Medicine
DX: R41.82 Altered mental status, unspecified (principal); R47.1 Dysarthria and anarthria; R29.810 Facial weakness; R47.01 Aphasia; Z79.899 Other long term (current) drug therapy
CPT/HCPCS: 36415; 51798; 70450; 70496; 70498; 70551; 70553; 71045; 72156; 80053; 80061; 80305; 81001; 82607; 82947; 83036; 84443; 84484; 85025; 85610; 85730; 93005; 93306; 96361; 96374; 96375; 97163; 99285; A9270; A9577; G0378; J1953; J2060; J7030; J7060; Q9967; 93010

== ENCOUNTER 2024-09-30 13:54 | Emergency (ER) | payer OTHER ==
[2024-09-30 14:40] LABS: BASOPHILS ABSOLUTE AUTO 0.11 K/uL (0.00-0.20); EOSINOPHILS ABSOLUTE AUTO 0.39 K/uL (0.00-0.45); EOSINOPHILS PERCENT AUTO 3.7 % (0.0-6.0); HEMOGLOBIN 15.4 g/dL (14.0-18.0); IMMATURE GRAN ABSOLUTE AUTO 0.05 K/uL (0.00-0.05); IMMATURE GRAN PERCENT AUTO 0.5 % (0.0-0.4); LYMPHOCYTES ABSOLUTE AUTO 1.98 K/uL (1.00-4.80); LYMPHOCYTES PERCENT AUTO 18.6 % (24.0-44.0); MEAN CORPUSCULAR HEMOGLOBIN 31.3 pg (28.0-32.0); MEAN CORPUSCULAR HGB CONC 33.5 g/dL (32.0-36.0); MEAN CORPUSCULAR VOLUME 93.5 fL (83.0-99.0); MEAN PLATELET VOLUME 9.9 fL (9.4-12.4); MONOCYTES ABSOLUTE AUTO 0.72 K/uL (0.00-0.80); MONOCYTES PERCENT AUTO 6.8 % (0.0-8.0); NEUTROPHILS PERCENT AUTO 69.4 % (41.0-71.0); PLATELET COUNT,PLT 243 K/uL (150-400); RED BLOOD CELL COUNT 4.92 M/uL (4.52-5.90); WHITE BLOOD CELL COUNT,WBC 10.65 K/uL (3.9-11.3)
[2024-09-30 15:15] LABS: A/G RATIO 1.3 (0.9-1.6); ALBUMIN 3.9 g/dL (3.4-5.0); BILIRUBIN TOTAL 1.2 mg/dL (0.2-1.0); CALCIUM 8.6 mg/dL (8.5-10.1); CARBON DIOXIDE,CO2 29.1 mmol/L (21.0-32.0); CREATININE 1.1 mg/dL (0.8-1.3); EST CRCL DRUG DOSING (CG) 75.44 mL/min; PROTEIN TOTAL,TP 6.9 g/dL (6.4-8.2)
== END 2024-09-30 17:36 | disposition home or self-care (01) ==
LOC: MW.ED 13:54
DX: R29.6 Repeated falls (principal); E78.00 Pure hypercholesterolemia, unspecified; Z86.73 Personal history of transient ischemic attack (TIA), and cerebral infarction without residual deficits; Z90.89 Acquired absence of other organs; Z90.49 Acquired absence of other specified parts of digestive tract; Z88.2 Allergy status to sulfonamides; Z79.82 Long term (current) use of aspirin; Z79.899 Other long term (current) drug therapy; Z75.8 Other problems related to medical facilities and other health care
CPT/HCPCS: 36415; 70551; 70551-26; 71045; 71045-26; 80053; 84484; 85025; 93005; 99284

== ENCOUNTER 2025-08-04 14:07 | Emergency (ER) | payer OTHER ==
[2025-08-04] MEDS ORDERED: Sodium Chloride 0.9% 2.5 ML Syringe FLUSH PRN (14:16)
[2025-08-04] MEDS ORDERED: Sodium Chloride 0.9% 10 ML Syringe FLUSH PRN (14:16)
[2025-08-04] MEDS: Ketorolac 30 MG/ML SDV IVPUSH ONE (14:47)
[2025-08-04 14:51] LABS: BASOPHILS ABSOLUTE AUTO 0.12 K/uL (0.00-0.20); BASOPHILS PERCENT AUTO 0.9 % (0.0-1.0); EOSINOPHILS ABSOLUTE AUTO 0.19 K/uL (0.00-0.45); EOSINOPHILS PERCENT AUTO 1.4 % (0.0-6.0); IMMATURE GRAN ABSOLUTE AUTO 0.04 K/uL (0.00-0.05); IMMATURE GRAN PERCENT AUTO 0.3 % (0.0-0.4); LYMPHOCYTES ABSOLUTE AUTO 1.70 K/uL (1.00-4.80); LYMPHOCYTES PERCENT AUTO 12.9 % (24.0-44.0); MEAN PLATELET VOLUME 9.8 fL (9.4-12.4); MONOCYTES ABSOLUTE AUTO 0.89 K/uL (0.00-0.80); MONOCYTES PERCENT AUTO 6.7 % (0.0-8.0); NEUTROPHILS ABSOLUTE AUTO 10.26 K/uL (1.80-7.70); NEUTROPHILS PERCENT AUTO 77.8 % (41.0-71.0); NRBC ABSOLUTE 0.00 K/uL (0.00-0.02); NRBC PERCENT 0.0 /100WBC (0.0-0.2); PLATELET COUNT,PLT 245 K/uL (150-400); RED BLOOD CELL COUNT 5.02 M/uL (4.52-5.90); WHITE BLOOD CELL COUNT,WBC 13.20 K/uL (3.9-11.3)
[2025-08-04 15:19] LABS: D-DIMER QUANTITATIVE 0.79 mg/L FEU (0.00-0.50); INR 1.13 (0.86-1.11)
[2025-08-04 15:23] LABS: A/G RATIO 1.2 (0.9-1.6); ALANINE AMINOTRANSFERASE,ALT 29.0 IU/L (14-63); ASPARTATE AMNIOTRANSFERASE,AST 19.0 IU/L (15-37); BILIRUBIN TOTAL 2.7 mg/dL (0.2-1.0); BLOOD UREA NITROGEN,BUN 19.0 mg/dL (7.0-18.0); CARBON DIOXIDE,CO2 28.8 mmol/L (21.0-32.0); CHLORIDE,CL 106.0 mmol/L (98-107); CREATININE 1.2 mg/dL (0.8-1.3); EST CRCL DRUG DOSING (CG) 70.28 mL/min; GLUCOSE RANDOM 134.0 mg/dL (74-106); POTASSIUM,K 3.6 mmol/L (3.5-5.1); PRO B-TYPE NATRIUR PEPT,BNPPRO 49.0 pg/mL (0-125); PROTEIN TOTAL,TP 7.4 g/dL (6.4-8.2); SODIUM,NA 143.0 mmol/L (136-148)
[2025-08-04 15:24] LABS: ESTIMATED GFR 68.0 mL/min (>60)
[2025-08-04] MEDS: Dexamethasone Sod Phos Preservative Free 10 MG/ML Vial IVPUSH ONE (16:40)
== END 2025-08-04 18:16 | disposition home or self-care (01) ==
LOC: MW.ED 14:07
DX: S22.41XA Multiple fractures of ribs, right side, initial encounter for closed fracture (principal); S52.125A Nondisplaced fracture of head of left radius, initial encounter for closed fracture; S00.12XA Contusion of left eyelid and periocular area, initial encounter; M25.562 Pain in left knee; E78.00 Pure hypercholesterolemia, unspecified; Z88.2 Allergy status to sulfonamides; Z79.899 Other long term (current) drug therapy; Z86.73 Personal history of transient ischemic attack (TIA), and cerebral infarction without residual deficits; W18.39XA Other fall on same level, initial encounter; Y93.89 Activity, other specified
CPT/HCPCS: 29105; 36415; 70450; 70486; 71045; 71275; 73080; 73562; 80053; 83690; 83735; 83880; 84484; 85025; 85379; 85610; 87428; 93005; 96374; 96375; 99285; A9270; J1100; J1885; 93010; 99284

== ENCOUNTER 2025-08-30 12:05 | Emergency (ER) | payer OTHER ==
[2025-08-30 12:19] LABS: BASOPHILS ABSOLUTE AUTO 0.12 K/uL (0.00-0.20); BASOPHILS PERCENT AUTO 1.1 % (0.0-1.0); EOSINOPHILS ABSOLUTE AUTO 0.24 K/uL (0.00-0.45); EOSINOPHILS PERCENT AUTO 2.3 % (0.0-6.0); IMMATURE GRAN ABSOLUTE AUTO 0.04 K/uL (0.00-0.05); IMMATURE GRAN PERCENT AUTO 0.4 % (0.0-0.4); LYMPHOCYTES ABSOLUTE AUTO 2.19 K/uL (1.00-4.80); LYMPHOCYTES PERCENT AUTO 20.6 % (24.0-44.0); MEAN PLATELET VOLUME 10.4 fL (9.4-12.4); MONOCYTES ABSOLUTE AUTO 0.40 K/uL (0.00-0.80); MONOCYTES PERCENT AUTO 3.8 % (0.0-8.0); NEUTROPHILS ABSOLUTE AUTO 7.64 K/uL (1.80-7.70); NEUTROPHILS PERCENT AUTO 71.8 % (41.0-71.0); NRBC ABSOLUTE 0.00 K/uL (0.00-0.02); NRBC PERCENT 0.0 /100WBC (0.0-0.2); PLATELET COUNT,PLT 223 K/uL (150-400); RED BLOOD CELL COUNT 5.18 M/uL (4.52-5.90); WHITE BLOOD CELL COUNT,WBC 10.63 K/uL (3.9-11.3)
[2025-08-30] MEDS: Diphtheria,Pertussis(Acell),Tetanus Vaccine 0.5 ML Syringe IM ONE (12:39)
[2025-08-30 13:15] LABS: A/G RATIO 1.3 (0.9-1.6); ALANINE AMINOTRANSFERASE,ALT 29 IU/L (14-63); ASPARTATE AMNIOTRANSFERASE,AST 22 IU/L (15-37); BILIRUBIN TOTAL 1.6 mg/dL (0.2-1.0); BLOOD UREA NITROGEN,BUN 16 mg/dL (7.0-18.0); CARBON DIOXIDE,CO2 24.6 mmol/L (21.0-32.0); CHLORIDE,CL 109 mmol/L (98-107); CREATININE 1.1 mg/dL (0.8-1.3); EST CRCL DRUG DOSING (CG) 67.84 mL/min; ESTIMATED GFR 75 mL/min (>60); ETHANOL BLOOD MEDICAL <3 mg/dL; GLUCOSE RANDOM 93 mg/dL (74-106); POTASSIUM,K 4.0 mmol/L (3.5-5.1); PROTEIN TOTAL,TP 7.3 g/dL (6.4-8.2); SODIUM,NA 143 mmol/L (136-148)
[2025-08-30 13:34] LABS: APPEARANCE,URINE CLEAR; GLUCOSE,URINE NEGATIVE (NEGATIVE); OCCULT BLOOD,URINE NEGATIVE (NEGATIVE)
[2025-08-30 17:18] LABS: EPITHELIAL CELLS,URINE NOT SEEN (NONE-FEW)
== END 2025-08-30 16:00 | disposition home or self-care (01) ==
LOC: MW.ED 12:05
DX: S01.81XA Laceration without foreign body of other part of head, initial encounter (principal); E78.00 Pure hypercholesterolemia, unspecified; Z23 Encounter for immunization; Z88.2 Allergy status to sulfonamides; Z86.73 Personal history of transient ischemic attack (TIA), and cerebral infarction without residual deficits; Z79.899 Other long term (current) drug therapy; W18.39XA Other fall on same level, initial encounter; Y93.89 Activity, other specified
CPT/HCPCS: 12014; 36415; 70450; 72125; 80053; 80307; 81001; 85025; 90471; 90715; 96374; 99284; J0690; 99283